=== PATIENT | female | born 2000 | race Caucasian/White ===

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

== ENCOUNTER 2021-04-13 11:49 | Emergency (ER) | payer OTHER ==
[~2021-04-13] VITALS: Ht 165.1 cm; Wt 80.1 kg
--- OUTSIDE RECORDS SUMMARY | 2021-04-13 11:56 | CCD ---
Author Author [facility] Organization [facility] Address [address] [place] [address] Phone Care Team Providers Care Imaging Specialist Name Role Phone Lucretia Mc MD Unavailable [phone] Reason for Referral No Reason for Referral Recorded Problems Includes: Active, inactive, and resolved Problems All Visits Onset Date - Time Resolved Date - Time Provider Co ndition Status Gerd 11/14/2020 - 12:00AM Purvi arevalo INSOLE DOUBLER Active Note: Unchanged Plan of Treatment Pending Tests Order Diagnosis Results Due Ordering Provi bhargav Therapy - Physical Therapy Left Knee Pain in left knee 09/21/17 Elza BuenoP Findings Encounter Date DISCONTINUE SIMETHICONE 80MG START FAMOTIDINE 20MG PO QD FFUP 4W GERD STANDARD OV with Purvi Portillo NP 01/16/2021 SIMETHICONE 80MG PO QID PRN PC AND AT HS FFUP 4W GE RD EXTENDED VISIT with Purvi Portillo NP 12/16/2020 GERD-AGGRAVATING LIST OF FOODS GIVEN DIET MODIFICAT ION THERAPY FFUP 4W GERD NEW PATIENT EVALUATION with Purvi Portillo NP 11/14/2020 Ordered follow-up visit RTC 4-6 WEEKS NEW PATIENT [place] LUATION with Elza Ricci 09/21/2017 Assessments Includes: Assessments for all patient encounters Findings Encounter Date GERD STANDARD OV with Purvi Portillo N P 01/16/2021 GERD EXTENDED VISIT with Purvi arevalo NP 12/16/2020 GERD NEW PATIENT EVALUATION with Purvi Portillo NP 11/14/2020 Arthralgia of the left knee/patella/tibia/fibula NEW P ATIENT EVALUATION with Elza Ricci 09/21/2017 Instructions Instructions not supported for this document typeNo Instructions Recorded Medical Equipment - Implanted Devices Includes: Current and historical DevicesNo Medical Equipment Recorded Medications Includes: Current and historical Medications Current Medications (continue as prescribed) Famotidine 20 MG Oral Tablet 01/16/2021 - 02/15/2021 Provide r: Purvi Nasim Portillo INSOLE DOUBLER Diagnosis: Gastro-esophageal re flux disease without esophagitis (GERD) TAKE 1 TAB BY MOUTH ONCE DAILY Past Medications on file Simethicone 80 MG Oral Tablet Chewable 12/16/2020 - 01/17/20 21 Provider: Purvi Portillo INSOLE DOUBLER Diagnosis: Gastro-esophageal re flux disease without esophagitis (GERD) TAKE 1 TAB BY MOUTH 4x/DAY NEEDED AFTER MEALS AND AT BEDT BLOSSOM Medications Administered Includes: Administered Medications in patient's chartNo Administered Medications Recorded Vital Signs Includes: Vital Signs from 01/17/2020 through 01/16/2021 Vital Name 01/16/2021 08:34A 12/16/2020 08:02A 11/14/2020 1 0:16A Blood Pressure Sitting L 102/60 118/76 BP Cuff Size Regular Regular Regular Pulse Rate-Sitting (bpm) 92 72 72 Respiration Rate (breaths/min) 20 20 2 4 Temp-Tympanic (F) 97.8 97.4 98.6 Height (in) 65 65 65 Weight (lb) 165 166 160 Body Mass Index (kg/m2) 27.5 27.6 26.6 BMI Percentile (percentile) 89 89 86 Body Surface Area (m2) 1.82 1.83 1.80 Oxygen Saturation (%) 98 98 98 Blood Pressure Sitting R 122/68 Flow Rate (l/min) (None (Room A ir)) FiO2 (%) 21 Results Includes: Results from 01/17/2020 through 01/16/2021No Results Recorded For Specified Dates History of Present Illness History of Present Illness not supported for this document typeNo History of Present Illness Recorded Social History Description Last Updated Social history unchanged 01/16/2021 Smoking Status Unknown Procedures and Surgical History Includes: Procedures from 01/17/2020 through 01/16/2021No Procedures For Specified Dates. No Surgical History Recorded Medical History Includes: Medical History in patient's chartNo Medical History Recorded Family History Includes: Family History in patient's chartNo Family History Recorded Review of Systems Review of Systems not supported for this document typeNo Review of Systems Recorded Mental Status Mental Status not supported for this document typeNo Mental Status Recorded Functional Status Functional Status not supported for this document typeNo Functional Status Recorded Physical Exam Physical Exam not supported for this document typeNo Physical Exam Recorded Immunizations Includes: Immunizations in patient's chartNo Immunizations Recorded Allergies Includes: Active, inactive, and resolved AllergiesNo Known Allergies Encounters Includes: Encounters from 01/17/2020 through 01/16/2021 Encounter Provider Location Date Check-In Time Check-Out Time D iagnosis STANDARD OV Purvi Portillo NP [facility] 01/16/2021 8:31AM 12/16/2020 11:59PM Gerd EXTENDED VISIT Purvi Portillo NP [facility] 12/16/2020 7:54AM 8:23AM Gerd NEW PATIENT EVALUATION Purvi Portillo NP [facility], 11/14/2020 10:14AM 10:58AM Gerd Insurance Includes: Active Insurance Policies Plan Name Member ID Group # Subscriber Relationship Effective Da scott 1 - (AID) [facility] [id number] Rex guerra Self Advance Directives Includes: Current Advance DirectivesNo Advance Directives Recorded Health Concerns Includes: Active Health ConcernsNo Active Health Concerns Recorded Goals Includes: Active GoalsNo Active Goals Recorded Interventions Includes: Interventions for active GoalsNo Interventions Recorded Evaluations & Outcomes Includes: Evaluations & Outcomes for active GoalsNo Outcomes Recorded
--- OUTSIDE RECORDS SUMMARY | 2021-04-13 11:56 | CCD ---
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 Note: Unchanged Plan of Treatment Pending Tests Order Diagnosis Results Due Ordering Provi bhargav Therapy - Physical Therapy Left Knee Pain in left knee 09/21/17 Elza BuenoP Future Appointments Date Time Location Provider STANDARD OV 03/18/2021 8:30AM [facility] Purvi Portillo MORTGAGE PROCESSING CLERK Findings Encounter Date INCREASE FAMOTIDINE TO 40MG PO QD FFUP 4W GERD SUREKHA DARD OV with Purvi Portillo NP 02/18/2021 DISCONTINUE SIMETHICONE 80MG START FAMOTIDINE 20MG PO QD FFUP 4W GERD STANDARD OV with Purvi Portillo MORTGAGE PROCESSING CLERK 01/16/2021 SIMETHICONE 80MG PO QID PRN PC [...] Encounter Date GERD STANDARD OV with Purvi Cochran P 02/18/2021 GERD STANDARD OV with Purvi Rouse Bandar N P 01/16/2021 GERD EXTENDED VISIT with Purvi Nasim arevalo MORTGAGE PROCESSING CLERK 12/16/2020 GERD NEW PATIENT EVALUATION with Purvi Olvera amy Portillo NP 11/14/2020 Arthralgia of the left knee/patella/tibia/fibula NEW P ATIENT EVALUATION with Ezla Ricci 09/21/2017 Instructions Instructions not supported for this document typeNo Instructions Recorded Medical Equipment - Implanted Devices Includes: Current and historical DevicesNo Medical Equipment Recorded Medications Includes: Current and historical Medications Current Medications (continue as prescribed) Famotidine 20 MG Oral Tablet 02/18/2021 - 03/20/2021 Provide r: Purvi Nasim Portillo NP Diagnosis: Gastro-esophageal re flux disease without esophagitis (GERD) TAKE 2 TABS (40MG) BY MOUTH ONCE DAILY Past Medications on file Famotidine 20 MG Oral Tablet 01/16/2021 - 02/18/2021 Provide r: [place] Nasim Portillo NP Diagnosis: Gastro-esophageal re flux disease without esophagitis (GERD) TAKE 1 TAB BY MOUTH ONCE DAILY Simethicone 80 MG Oral Tablet Chewable 12/16/2020 - 01/17/20 Provider: Purvi Portillo NP Diagnosis: Gastro-esophageal re flux disease without esophagitis (GERD) TAKE 1 TAB BY MOUTH 4x/DAY NEEDED AFTER MEALS AND AT BEDT BLOSSOM Medications Administered Includes: Administered Medications in patient's chartNo Administered Medications Recorded Vital Signs Includes: Vital Signs from 02/19/2020 through 02/18/2021 Vital Name 02/18/2021 07:58A 01/16/2021 08:34A 12/16/2020 08:02A 11/14/2020 10:16A Blood Pressure Sitting L 110/62 102/60 118/76 BP Cuff Size Regular Regular Regular Regular Pulse Rate-Sitting (bpm) 82 92 72 72 Respiration Rate (breaths/min) 24 20 20 24 Temp-Tympanic (F) 98 97.8 97.4 98.6 Height (in) 65 65 65 65 Weight (lb) 170 165 166 160 Body Mass Index (kg/m2) 28.3 27.5 27.6 26.6 BMI Percentile (percentile) 90 89 89 86 Body Surface Area (m2) 1.85 1.82 1.83 1.80 Oxygen Saturation (%) 98 98 98 98 Flow Rate (l/min) (None (Room Air)) (No ne (Room Air)) FiO2 (%) 21 21 Blood Pressure Sitting R 122 /68 Results Includes: Results from 02/19/2020 through 02/18/2021No Results Recorded For Specified Dates History of Present Illness History of Present Illness not supported for this document typeNo History of Present Illness Recorded Social History Description Last Updated Social history unchanged 02/18/2021 Smoking Status Unknown Procedures and Surgical History Includes: Procedures from 02/19/2020 through 02/18/2021No Procedures For Specified Dates. No Surgical History [...] AllergiesNo Known Allergies Encounters Includes: Encounters from 02/19/2020 through 02/18/2021 Encounter Provider Location Date Check-In Time Check-Out Time [facility]agnosis [facility] 7:57[facility] 01/16/2021 11:59PM Gerd STANDARD OV [place] Nasim Portillo [facility] 01/16/2021 8:31AM 9:01AM Gerd EXTENDED VISIT Purvifariha Portillo [facility] 12/16/2020 7:54AM 8:23AM Gerd NEW PATIENT EVALUATION [place] Nasim Portillo [facility] 11/14/2020 10:14AM 10:58AM Gerd Insurance Includes: Active Insurance Policies Plan Name Member ID Group # Subscriber Relationship Effective Da scott 1 - (AID) [facility] [id number] Rex Nichols n Self Advance Directives Includes: Current Advance DirectivesNo Advance Directives Recorded Health Concerns Includes: Active Health ConcernsNo Active Health Concerns Recorded Goals Includes: Active GoalsNo Active Goals Recorded Interventions Includes: Interventions for active GoalsNo Interventions Recorded Evaluations & Outcomes Includes: Evaluations & Outcomes for active GoalsNo Outcomes Recorded
--- OUTSIDE RECORDS SUMMARY | 2021-04-13 11:56 | CCD ---
Author Author [facility] Organization [facility] Address Unknown Phone Unavailable Care Team Providers Care District Gauger Name Role Phone Hospital Lab, [facility] Unavailable Unavailable TURRIN, JCARLOS Unavailable Unavailable TURRIN, JCARLOS Unavailable Unavailable TURRIN, JCARLOS Unavailable Unavailable TURRIN, JCARLOS Unavailable Unavailable Dilshad Arce Unavailable [phone] Dilshad Arce Unavailable [phone] Dilshad Arce Unavailable [phone] Dilshad Arce Unavailable [phone] Dilshad Arce Unavailable [phone] Dilshad Arce Unavailable [phone] Mami Winkler MD Unavailable Unavailable Mami Winkler MD Unavailable Unavailable Mami Winkler MD Unavailable Unavailable Mami Winkler MD Unavailable Unavailable Mami Winkler MD Unavailable Unavailable Mami Winkler MD Unavailable Unavailable Mami Winkler MD Unavailable Unavailable Mami Winkler MD Unavailable Unavailable Mami Winkler MD Unavailable Unavailable Mami Winkler MD Unavailable Unavailable Mami Winkler MD Unavailable Unavailable Mami Winkler MD Unavailable Unavailable Mami Winkler MD Unavailable Unavailable Mami Winkler MD Unavailable Unavailable Mami Winkler MD Unavailable Unavailable Mami Winkler MD Unavailable Unavailable Mami Winkler MD Unavailable Unavailable Mami Winkler MD Unavailable Unavailable Mami Winkler MD Unavailable Unavailable Mami Winkler MD Unavailable Unavailable Mami Winkler MD Unavailable Unavailable Mami Winkler MD Unavailable Unavailable Mami Winkler MD Unavailable Unavailable Mami Winkler MD Unavailable Unavailable Mami Winkler MD Unavailable Unavailable Bandar, Mariae Purvi SHOT HOLE SHOOTER Unavailable Unavailable [place], Mariae [place] SHOT HOLE SHOOTER Unavailable Unavailable Bandar, Mariae Purvi SHOT HOLE SHOOTER Unavailable Unavailable Bandar, Mariae [place] SHOT HOLE SHOOTER Unavailable Unavailable Bandar, Mariae Purvi SHOT HOLE SHOOTER Unavailable Unavailable [place], Mariae [place] SHOT HOLE SHOOTER Unavailable Unavailable [place], Mariae [place] SHOT HOLE SHOOTER Unavailable Unavailable [place], Mariae [place] SHOT HOLE SHOOTER Unavailable Unavailable Bandar, Mariae Purvi SHOT HOLE SHOOTER Unavailable Unavailable Bandar, Mariae [place] SHOT HOLE SHOOTER Unavailable Unavailable Bandar, Mariae Purvi SHOT HOLE SHOOTER Unavailable Unavailable Bandar, Mariae [place] SHOT HOLE SHOOTER Unavailable Unavailable Bandar, Mariae [place] SHOT HOLE SHOOTER Unavailable Unavailable [place], Mariae Purvi SHOT HOLE SHOOTER Unavailable Unavailable Bandar, Mariae [place] SHOT HOLE SHOOTER Unavailable Unavailable [place], Mariae [place] SHOT HOLE SHOOTER Unavailable Unavailable [place], Mariae [place] SHOT HOLE SHOOTER Unavailable Unavailable DANITZA SETHI MD Unavailable Unavailable [...] Unavailable Unavailable DANITZA SETHI MD Unavailable Unavailable GILDARDO SETHIALIFrances LUCERO Unavailable Unavailable DANITZA SETHI MD Unavailable Unavailable DANITZA SETHI MD Unavailable Unavailable DANITZA SETHI MD Unavailable Unavailable KARDOONI, BOSCH Unavailable Unavailable DANITZA SETHI MD Unavailable Unavailable NIURKA SETHIL Unavailable Unavailable DANITZA SETHI MD Unavailable Unavailable NIURKA SETHIL Unavailable Unavailable GILDARDO SETHIALIL Unavailable Unavailable JOSSIE, BOSCH Unavailable Unavailable GILDARDO SETHIALIL Unavailable Unavailable GIBRANDOGILDARDO ODONNELLALIL MD Unavailable Unavailable JOSSIE, BOSCH Unavailable Unavailable GIBRANDOBELLE, BOSCH MD Unavailable Unavailable Reina, M Christopher PA-C Unavailable Unavailable Reina, M Christopher PA-C Unavailable Unavailable Reina, M Christopher PA-C Unavailable Unavailable Reina, M Christopher PA-C Unavailable Unavailable Reina, M Christopher PA-C Unavailable Unavailable Reina, M Christopher PA-C Unavailable Unavailable Reina, M Christopher PA-C Unavailable Unavailable Reina, M Christopher PA-C Unavailable Unavailable Reina, M Christopher PA-C Unavailable Unavailable Reina, M Christopher PA-C Unavailable Unavailable Reina, M Christopher PA-C Unavailable Unavailable Reina, M Christopher PA-C Unavailable Unavailable Reina, M Christopher PA-C Unavailable Unavailable Reina, M Christopher PA-C Unavailable Unavailable Reina, M Christopher PA-C Unavailable Unavailable Reina, M Christopher PA-C Unavailable Unavailable Reina, M Christopher PA-C Unavailable Unavailable Reina, M Christopher PA-C Unavailable Unavailable Reina, M Christopher PA-C Unavailable Unavailable Reina, M Christopher PA-C Unavailable Unavailable Reina, M Christopher PA-C Unavailable Unavailable Reina, M Christopher PA-C Unavailable Unavailable Reina, M Christopher PA-C Unavailable Unavailable Reina, M Christopher PA-C Unavailable Unavailable Reina, M Christopher PA-C Unavailable Unavailable Reina, M Christopher PA-C Unavailable Unavailable Re-disclosure Warning The records that [...] is protected by Article 27-F of the [facility] Public Health law. If you continue you may have access to information: Regarding HIV / AIDS; Provided by facilities licensed or operated by the [facility] Office of Mental Health; or Provided by the [facility] Office for People With Developmental Disabilities. If such information is present, then the following [facility] mandated warning applies: This information has [...] law may result in a fine or nursing home sentence or both. A general authorization for the release of medical or other information is NOT sufficient authorization for further disc losure. Allergies and Adverse Reactions Type Description Substance Reaction Status Data Source(s ) Allergy to substance No Known Allergies No known allergies (situation ) [facility]) Allergy to substance No Known Allergies No known allergies (situation ) [facility]) Allergy to substance No Known Allergies No known allergies (situation ) [facility]) Allergy to substance No Known Allergies No known allergies (situation ) [facility]) Allergy to substance No Known Allergies No known allergies (situation ) [facility]) No Known Allergies No Known Allergies [facility] Family History Family Member Name Family Member Gender Family Member Status Date o f Status Description Data Source(s) Unknown Unknown Problem MEDENT ([facility], [facility]) Unknown Unknown Problem MEDENT ([facility]) Encounters Encounter Providers Location Date Indications Data Source(s ) <td ID="encounterTypeDescriptionID0">RAUL LEONIDESSARAHI OV</td><td>Purvi Portillo SHOT HOLE SHOOTER</td><td>[facility]</td><td>03/18/2021</td><td>8:24AM</td><td>9:08AM</td><td><content ID="encounterDiagnosisID0-0">Gerd</content>, <content ID="encounterDiagnosisID0- 1">Working Diagnosis of Gastric Ulcer</content></td>Outpatient Attender: Purvi Portillo NP [facility] 03/18/2021 08:24:00 AM EDT - 03/18/2021 09:08:00 AM EDT Working Diagnosis of Gastric UlcerGerd ALEXYS ([facility]) Working Diagnosis of Gastric Ulcer Gerd Outpatient Attender: Prachi Winkler MD 1 12:39:14 PM EDT - 03/05/2021 02:09:39 PM EDT Heather ([facility]) <td ID="encounterTypeDescriptionID1">STA NDARD OV</td><td>Purvi Portillo NP</td><td>[facility]</td><td>02/18/2021</td><td>7:57AM</td><td>8:25AM</td><td><content ID="encounterDiagnosisID1-0">Gerd</content></td>Outpatient Attender: Purvi Portillo NP [facility], 02/18/2021 07:57:00 AM EDT - 02/18/2021 08:25:00 AM EDT GerdGerd ALEXYS ([facility]) Gerd Gerd Outpatient<td ID="encounterTypeDescripti onID2">STANDARD OV</td><td>Purvi Portillo NP</td><td>[facility]</td><td>01/16/2021</td><td>8:31AM</td><td>9:01AM</td><td><content ID="encounterDiagnosisID2-0">Gerd</content></td> Attender: Purvi Portillo NP [facility], 01/16/2021 08:31:00 AM EDT - 01/16/2021 09:01:00 AM EDT Darryl REARDON ([facility]) Gerd Gerd Gerd Outpatient<td ID="encounterTypeDescripti onID3">EXTENDED VISIT</td><td>Purvi Portillo NP</td><td>[facility]</td><td>12/16/2020</td><td>7:54AM</td><td>8:23AM</td><td><content ID="encounterDiagnosisID3-0">Gerd</content></td> Attender: Purvi Portillo NP [facility], 12/16/2020 07:54:00 AM EDT - 12/16/2020 08:23:00 AM EDT Khris REARDON ([facility]) Gerd Gerd Gerd Gerd Outpatient<td ID="encounterTypeDescripti onID4">NEW PATIENT EVALUATION</td><td>Purvi Portillo NP</td><td>[facility]</td><td>11/14/2020</td><td>10:14AM</td><td>10:58AM</td><td><content ID="encounterDiagnosisID4-0">Gerd</content></td> Attender: Purvi Portillo NP [facility], 11/14/2020 10:14:00 AM EDT - 11/14/2020 10:58:00 AM EDT Roberth REARDON ([facility]) Gerd Gerd Gerd Gerd Gerd Outpatient Attender: Peter Reina PA-C 11/01/2020 01:21:35 PM EDT - 11/01/2020 02:37:29 PM EDT [facility] ([facility]) Outpatient Attender: Dilshad Arce 07/30 04:56:14 PM EST - 07/30/2020 05:50:20 PM EST [facility] ([facility] ) Outpatient Attender: [facility] 07/16/2020 11:4 0:[address] [facility] Emergency Attender: JCARLOS Gunterant: DANITZA DUMONT MD 07/16/2020 11:27:00 PM EST - 07/17/2020 01:34:00 AM [facility] Patient discharged. Immunizations Vaccine Date Status Description Data Source(s) COVID-19 VACCINE Pfizer 02/13/2021 12:00:00 AM EDT completed [facility] Vaccine Series Complete: YESThis Data wa s Submitted to [facility] Via [employer]. COVID-19 VACCINE Pfizer 01/23/2021 12:00:00 AM EDT completed [facility] Vaccine Series Complete: NOThis Data was Submitted to [facility] Via [employer]. Medications Medication Brand Name Start Date Product Form Dose Route Admi nistrative Instructions Pharmacy Instructions Status Indications Reaction Description Data Source(s) Famotidine 20 MG Oral Tablet Famotidine 20 MG Oral Tablet 12:00:00 AM EDT active famotidine 20 MG Oral Tablet [facility] ([facility]) Omeprazole 20 MG Delayed Release Oral Ta blet Omeprazole 20 MG Oral Tablet Delayed Release Omeprazole 20 MG Oral Tablet Delayed Release 12:00:00 AM EDT active omeprazole 20 MG Delayed Release Oral Tablet [facility] ([facility]) Famotidine 20 MG Oral Tablet Famotidine 20 MG Oral Tablet 12:00:00 AM EDT aborted famotidine 20 MG Oral Tablet [facility] ([facility]) Famotidine 20 MG Oral Tablet Famotidine 20 MG Oral Tablet 12:00:00 AM EDT aborted famotidine 20 MG Oral Tablet [facility] ([facility]) Simethicone 80 MG Chewable Tablet Simethicone 80 MG Or al Tablet Chewable Simethicone 80 MG Oral Tablet Chewable 12/16/2020 12:00:00 AM EDT aborted simethicone 80 MG Chewable Table t [facility] ([facility]) Insurance Providers Payer name Policy type / Coverage type Policy ID Covered constitution party ID Covered constitution party's relationship to menjivar Policy Menjivar Plan Information BS [place] [employer] Commercial [id number] Family Dependent Hmo Blue Option Health Maintenance Organization (HMO) [id number] Family Dependent [facility] Community Plan Health Maintenance Organization (HMO) [id number] Family Dependent [place] Commercial Insurance Co. [id number] Self [id number] [employer]. [id number] Self [id number] Sky Commercial [employer] Co. [id number] Self [id number] SKY CARE OF [place] - [id number] SKY [id number] SP [id number] UNHC COMMUNITY PLAN MCDO [id number] SP [id number] MEDICAID SBHC CO [id number] [id number] Self [id number] Medicaid SBHC Commercial [id number] Self [id number] [facility](MCAID) O [id number] S [id number] UNHC COMMUNITY PLAN MCDO [id number] SP [id number] SELF PAY ONLY [id number] [facility]/Community [facility] Health Maintenance Organization (HMO) [id number] Self [id number] UNHC AMERICHOICE HMO [id number] 18 [id number] MEDICAID [id number] SP [id number] UNHC AMERICHOICE XIX -HMO [id number] 18 [id number] MEDICAID [facility] [id number] 18 [id number] [employer] BCBS P [id number] S [id number] [facility](MCAID) O [id number] S [id number] Medicaid-Pcap Medicaid [id number] Family Dependent SELF PAY UNAVAILABLE SP UNAVAILA BLE HMO BLUE [id number] SP [id number] MEDICAID [id number] SP [id number] HMO BLUE [id number] SP [id number] [place] Care [place] Individual Policy 0 [id number] Self 0 HMO BLUE [id number] SP [id number] [place] Individual Policy 0 [id number] Self 0 [place] Policy 0 [id number] Self 0 [place] Individual Policy 0 [id number] Self 0 [place] Individual Policy 0 [id number] Self 0 SKY [id number] Problems, Conditions, and Diagnoses Code Display Name Description Problem Type Effective Dates Data Source(s) K047 Periapical abscess without sinus Periapical absc ess without sinus Diagnosis 07/16/2020 11:27:00 PM [facility] K0889 Other specified disorders of teeth and s upporting structures Other specified disorders of teeth and supporting structures Diagnosis 07/16/2020 11:27:00 PM [facility] 530.81 Gerd Gerd Problem 11/14/2020 12:00:00 AM ED [facility] ([facility]) 530.81 Gerd Gerd Problem 11/14/2020 12:00:00 AM ED T [facility] ([facility]) 530.81 Gerd Gerd Problem 11/14/2020 12:00:00 AM ED T [facility] ([facility]) 530.81 Gerd Gerd Problem 11/14/2020 12:00:00 AM ED T [facility] ([facility]) 530.81 Gerd Gerd Problem 11/14/2020 12:00:00 AM ED T [facility] ([facility]) Surgeries/Procedures No Information Results ID Date Data Source [id number] 03/05/2021 01:30:00 PM EDT [facility] Name Value Range Interpretation Code Description Data Cary rce(s) Supporting Document(s) SARS-CoV-2 RNA Resp Ql VENU+probe NOT DETECTED [facility] This lab was ordered by MARISABEL tobin and reported by MARISABEL Costa. ID Date Data Source [id number] 02/19/2021 05:03:00 PM EDT [facility] Name Value Range Interpretation Code Description Data Cary rce(s) Supporting Document(s) SARS coronavirus 2 RdRp gene Covid_negative [facility] This lab was ordered by [facility] and reported by [employer]. ID Date Data Source [id number] 02/12/2021 05:45:00 PM EDT [facility] Name Value Range Interpretation Code Description Data Cary rce(s) Supporting Document(s) SARS coronavirus 2 RdRp gene Covid_negative [facility] This lab was ordered by [facility] and reported by [employer]. ID Date Data Source [id number] 02/05/2021 05:13:00 PM EDT [facility] Name Value Range Interpretation Code Description Data Cary rce(s) Supporting Document(s) SARS coronavirus 2 RdRp gene Covid_negative [facility] This lab was ordered by VEE cordoba nd reported by [employer]. ID Date Data Source [id number] 07/16/2020 11:27:00 PM EST [facility] 1 OrderSheet [facility] Emergency Department [address] [place] [address] Phone #: ext- [phone] 07/16/2020 23:27 Patient: REX PRESCOTT Sex: F : 2000 Age: 19yWEIGHT:72.5 [...] R.N. M.D.;Blood Culture STAT 23:42 07/16/2020 23:53 Virginie,q10m X2 (Olimpia Jcarlos Layton R.N.23:42 07/16/2020) Vamis;Blood Culture STAT 23:42 07/16/2020 00:03 07/17/2020q10m X2 (Olimpia Jcarlos Layton Laura23:52 07/16/2020) Vamsi; R.N.DIAGNOSTIC STUDY ORDERSOrder Description Priority Entered Acknowledged Initi aledMEDICATION/IV/DRIP/FLUID ORDERSOrder Description Priority Entered Acknowledged InitialedNS IV 1000 mL 23:42 07/16/2020 00:00 07/17/2020olus: : Bolus 1000 Jcarlos Layton GregorymL (X1) Vamsi;Ibuprofen 800 mg 23:42 07/16/2020 00:00 1PO X1 dose: 800 Jcarlos Layton Gregorymg (NOW x1) Vamsi;Clindamycin IVPB 23:42 07/16/2020 00:04 07/17/2020 2 OrderSheet [facility] [address] [place] [address] Phone #: ext- [phone] 07/16/2020 23:27 Patient: REX PRESCOTT Sex: F : 2000 Age: 78x143 mg Jcarlos Layton Laura M.D.; R.N.NS IV 1000 mL 00:41 07/17/2020 00:45 Virginie,Bolus: : Bolus 1000 Jcarlos LaytonN.mL (X1) DouglasDZachary;GENERAL ORDERSOrder Description Priority Entered Acknowledged InitialedNPO 23:42 07/16/2020 23:53 MelKinjal meneses Riccardo Laura R.N. M.D.;Saline Lock 23:42 07/16/2020 23:53 Kinjal Rachel Riccardo Laura R.N. M.D.;[Electronically signed by Leroy Jiang (01:35 07/17/2020)][Electronically signed by Jcarlos Layton M.D. (03:07 07/17/2020)][Electronically locked by Leroy Jiang (01:35 07/17/2020)] Name Value Range Interpretation Code Description Data Cary rce(s) Supporting Document(s) ID Date Data Source [id number] 07/16/2020 11:27:00 PM EST [facility] 1 Medication Reconciliation Report [facility] Emergency [facility] [address] [place] [address] Phone #: ext- [phone] 07/16/2020 23:27 Patient: REX PRESCOTT Sex: F : 2000 Age: 19yWeight: [...] Dispense 28 capsule.Refills: 0. Substitution permitted.Pharmacy - [facility] [id number] ; [place] [address]. . -- Jcarlos Layton M.D. Name Value Range Interpretation Code Description Data Cary rce(s) Supporting Document(s) ID Date Data Source [id number] 07/16/2020 11:27:00 PM EST [facility] 1 Medication Administration Record [facility] [address] [place] [address] Phone #: ext- [phone] 07/16/2020 23:27 Patient: REX PRESCOTT Sex: F : 2000 Age: 19yWeight: 72.5 kgHeight/Length: 65 inBMI: 26.6ALLERGIES: No Known Drug Allergy Date/Time Medication Administered Medication OrderedStart NS [IV] NS IV 1000 mL Bolus: : Bolus [id number] 07/16/2020 Dose: IV Fluids mL (X1)Leroy Jiang, Bolus: 1000 mL wide open---- Dispensed: 1000 mL bagStop Site: #1 left :00 07/17/2020Sarah Rachel, R.NZacharyGiven IBUPROFEN [PO] Ibuprofen 800 mg PO X1 dose: 42375:00 07/17/2020 Dose: 800 mg Tablets PO mg (NOW x1)Leroy JiangStart CLINDAMYCIN [IVPB] Clindamycin IVPB 900 mg00:04 07/17/2020 Dose: 900 mg IVPBMelar Sarah london, R.NZachary Rate: 100 mL/hr over 30 minute(s)---- Dispensed: 50 mL bagStop Site: #1 left [id number]:40 07/17/2020Sarah Rachel, R.NZacharyStart SODIUM CHLORIDE [IV] NS IV 1000 mL Bolus: : Bolus 737762:45 07/17/2020 Dose: IV Fluids mL (X1)Sarah Rachel R.N. Bolus: 1000 mL wide open---- Dispensed: 1000 mL bagStop Site: #1 left yoqhmwq58:26 07/17/2020Sarah Rachel R.N. Name Value Range Interpretation Code Description Data Cary rce(s) Supporting Document(s) ID Date Data Source [id number] 07/16/2020 11:27:00 PM EST [facility] 1 General Instructions [facility] [address] [place] [address] Phone #: ext- [phone] 07/16/2020 23:27 Patient: REX PRESCOTT Sex: F : 2000 Age: 19yPeriapical [...] Dispense 28 capsule.Refills: 0. Substitution permitted.Pharmacy - [facility] [phone] ; [place] [address]. .Follow-up:Return to the emergency department as needed. [...] or biting on hard 2 General Instructions [facility] [address] [place] [address] Phone #: ext- [phone] 07/16/2020 23:27 Patient: REX PRESCOTT Sex: F : 2000 Age: 19 [...] reduce pain. Oil of cloves is sold bmyb-rst-mifzugn in pharmacies. Some pharmacies carry an vecu-qtm-pirhpry "toothache kit." This contains oil of cloves [...] or an ice pack 3 General Instructions [facility] [address] [place] [address] Phone #: ext- [phone] 07/16/2020 23:27 Patient: REX PRESCOTT Sex: F : 2000 Age: 19y [...] sooner.Follow-up careFollow up as advised with an flanging machine operator, or oral surgeon. Even though your pain may improve withthe treatment given today, only a dentist, flanging machine operator, or oral surgeon can provide full treatment forthis problem. If a culture was done, you will be told if the treatment needs to be changed. You can call in as directed for the results. If X-rays were taken, they will be reviewed by a specialist. You will be given the results, especially if they affect treatment.Call [phone] if any of these occur: Trouble breathing [...] by your healthcare provider 4 General Instructions [facility] [address] [place] [address] Phone #: ext- [phone] 07/16/2020 23:27 Patient: REX PRESCOTT Sex: F : 2000 Age: 19y Unusual drowsiness, a headache or stiff neck, or weakness Pus drains from the gum or tooth You can't open your mouth wide [phone] The [employer]. [address] [place] [address]. All rights reserved. This information is not [...] to. For example, take 5 General Instructions [facility] [address] [place] [address] Phone #: ext- [phone] 07/16/2020 23:27 Patient: REX PRESCOTT Sex: F : 2000 Age: 19yibuprofen. [...] rejection medicines. If you 6 General Instructions [facility] [address] [place] [address] Phone #: ext- [phone] 07/16/2020 23:27 Patient: REX PRESCOTT Sex: F : 2000 Age: 19y are not sure about whether your medicines suppress your immune system, ask your healthcare provider.Call 911Someone should call 911 if you: Are having trouble breathing or shortness of breath Are unresponsiveImportant reminderCall your healthcare provider if you get a fever after visiting a place where infectious diseases arecommon. Many people orange picker machine operator a cold or other virus while traveling. [...] you travelled and where you stayed (hotel, lower elwha house, tent) What you ate and drank If you were bitten by insects or other bugs If you swam in freshwater If you had sex or got a tattoo or piercing while you were thereCheck the [facility] to get more information about specific infectious diseases in the areas you havetraveled. [employer]. [address] [place] [address], [place] [address]. All rights reserved. This information is not intended as asubstitute for professional medical care. Always follow your healthcare professional's instructions. You have been given the following additional information: Tooth Abscess Fever Control (Adult) 7 General Instructions [facility] [address] [place] [address] Phone #: ext- [phone] 07/16/2020 23:27 Patient: REX PRESCOTT Sex: F : 2000 Age: 19y(Electronically signed by Jcarlos Layton M.D. 07/17/2020 03:07) Name Value Range Interpretation Code Description Data Cary rce(s) Supporting Document(s) ID Date Data Source [id number] 07/16/2020 11:27:00 PM EST [facility] 1 Clinical Report - Nurses [facility] [address] [place] [address] Phone #: ext- [phone] 07/16/2020 23:27 Patient: REX PRESCOTT Sex: F : 2000 Age: 19yTRIAGEArrived [...] also took Benadryl about 2 hrs ago.).Treatment MANAGER INVENTORY MANAGEMENT:(penicillin and benadryl).SEPSIS SCREEN: SIRS SCREEN POSITIVE: temperature [...] harming or 2 Clinical Report - Nurses [facility] [address] [place] [address] Phone #: ext- [phone] 07/16/2020 23:27 Patient: REX PRESCOTT Sex: F : 2000 Age: 19y [...] flushed with 10 mL saline (placed by Sarah RN). --23:59 07/16/20 Leroy Jiang 3 Clinical Report - Nurses [facility] [address] [place] [address] Phone #: ext- [phone] 07/16/2020 23:27 Patient: REX PRESCOTT Sex: F : 2000 Age: 19y23:59 [...] with patient. Verbalizes understanding. --00:04 07/17/20 Sarah Rachel, RDenisePatient ID band checked for patient name and [...] calm and resting quietly. --00:22 07/17/20 Sarah Racehl R.N.The patient is calm and resting quietly. [...] air. Temp: 99.2 F(oral). Pain level now: 10/06. --01:02 07/17/20 Sarah Rachel R.N.The patient is calm and resting quietly. Overall patient status- she states feels better. --01:07/17/20Sarah Rachel R.N. 4 Clinical Report - Nurses [facility] [address] [place] [address] Phone #: ext- [phone] 07/16/2020 23:27 Patient: REX PRESCOTT Sex: F : 2000 Age: 19y [...] 99.2 F (oral). Pain level now: 09/06. --01:07/17/20 Sarah Rachel R.N. 01:07/17/2020 Site #1 removed upon discharge. Bandage applied. --01:07/17/20 Sarah Rachel R.N. ( MD Layton aware of d/c VS and okay with d/c pt.). --:07/17/20 Sarah Rachel R.N. Condition at departure: stable. No learning barriers present. Discharge instructions provided and reviewed with the patient. Reviewed warnings (signs and symptoms of worsening condition). Reviewed medication(s) side effects, precautions, dosing and course information. Prescription(s) sent electronically to pharmacy (clindamycin Tylenol, ibuprophen). Reviewed referral to a dentist. Patient verbalized understanding. Written instructions provided in Venezuelan. No treatment instructions. The patient was discharged by the physician. She was discharged home and accompanied by parent. She left ambulatory and via private vehicle. Parent driving. --01:35 07/17/20 Leroy Jiang.Locked/Released at 07/17/2020 01:35 by Leroy Jiang Name Value Range Interpretation Code Description Data Cary rce(s) Supporting Document(s) ID Date Data Source [id number] 07/16/2020 11:27:00 PM [facility] 1 Clinical Report - Physicians/Mid Levels [facility] [address] [place] [address] Phone #: ext- [phone] 07/16/2020 23:27 Patient: REX PRESCOTT Sex: F : 2000 Age: 19y [...] EXAM 2 Clinical Report - Physicians/Mid Levels [facility] [address] [place] [address] Phone #: ext- [phone] 07/16/2020 23:27 Patient: REX PRESCOTT Sex: F : 2000 Age: 19y [...] PANEL 3 Clinical Report - Physicians/Mid Levels [facility] [address] [place] [address] Phone #: bdo- [phone] 07/16/2020 23:27 Patient: REX PRESCOTT Sex: F : 2000 Age: 19y SODIUM [...] NEGATIVE (NORMAL: NEGAT { KIT LOT # [id number] ){ KIT EXP DATE [id number] ){ PROCEDURAL CONTROL VALID ) Lactic Acid: [...] store. 4 Clinical Report - Physicians/Mid Levels [facility] [address] [place] [address] Phone #: [facility]- [phone] 07/16/2020 23:27 [id number] Sex: F : 2000 Age: 19y Patient [...] capsule. Refills: 0. Substitution permitted. Pharmacy - [facility] [phone] ; [place] [address]. . Follow- up: Return to the emergency department as needed. Follow up with a dentist today as scheduled even if well. Reason for referral: evaluation and treatment. Summary of care provided to patient via paper. 5 Clinical Report - Physicians/Mid Levels [facility] [place] [address] Phone #: ext- [phone] 07/16/2020 23:27 Patient: REX PRESCOTT Sex: F : 2000 Age: 19y(Electronically signed by Jcarlos Layton M.D. 07/17/2020 03:07) Name Value Range Interpretation Code Description Data Cary rce(s) Supporting Document(s) ID Date Data Source [id number] 07/22/2020 12:57:00 PM [facility] Name Value Range Interpretation Code Description Data Cary rce(s) Supporting Document(s) CULTURE BLOOD [facility] Ho spital _CULTURE BLOOD_{ PRELIM TEST PERFORMED AT [address] [address] CLIA# [id number] SEE SCANNED REPORT ID Date Data Source [id number] 07/22/2020 07:41:00 AM EST [facility] [id number] Name Value Range Interpretation Code Description Data Cary rce(s) Supporting Document(s) Bacteria identified in Blood by Culture [facility] NO GROWTH AFTER 5 DAYS ID Date Data Source [id number] 07/22/2020 12:57:00 PM [facility] Name Value Range Interpretation Code Description Data Cary rce(s) Supporting Document(s) CULTURE BLOOD [facility] _CULTURE BLOOD_{ PRELIM TEST PERFORMED AT [address] [address] CLIA# [id number] SEE SCANNED REPORT ID Date Data Source [id number] 07/17/2020 12:31:00 AM [facility] Name Value Range Interpretation Code Description Data Cary rce(s) Supporting Document(s) COMPREHENSIVE METABOLIC PANEL [facility] COMPREHENSIVE METABOLIC PANEL Sodium [Moles/volume] in Serum or Plasma 136 mEq/L 134 - 153 [facility] Potassium [Moles/volume] in Serum or Plasma 3.9 mEq/L 3.6 - 5.0 [facility] Chloride [Moles/volume] in Serum or Plasma 100 mEq/L 98 - 107 [facility] Carbon dioxide, total [Moles/volume] in Serum or Plasma 22 MEQ/L 22 - 30 [facility] Glucose [Mass/volume] in Serum or Plasma 120 MG/DL 70 - 99 H [facility] BUN 8 MG/DL 7 - 21 [facility] al Creatinine [Mass/volume] in Serum or Plasma 0.6 MG/DL 0.7 - 1.5 L [facility] BUN/CREAT 13 8 - 27 [facility] al Protein [Mass/volume] in Serum or Plasma 7.4 G/DL 6.3 - 8.2 [facility] Albumin [Mass/volume] in Serum or Plasma 4.5 G/DL 3.9 - 5.0 [facility] Globulin [Mass/volume] in Serum by calculation 2.9 GM/DL 2.4 - 3.2 [facility] A/G RATIO 1.6 0.8 - 2.0 [facility] Calcium [Mass/volume] in Serum or Plasma 9.6 MG/DL 8.4 - 10.2 [facility] Bilirubin.total [Mass/volume] in Serum or Plasma 1.9 MG/DL 0.2 - 1.3 H [facility] Alkaline phosphatase [Enzymatic activity/volume] in Serum or Plasma 51 U/L 38 - 126 [facility] Aspartate aminotransferase [Enzymatic activity/volume] in Serum or Plasma 15 U/L 5 - 40 [facility] Alanine aminotransferase [Enzymatic activity/volume] in Seru m or Plasma 10 U/L 7 - 56 [facility] Anion gap 3 in Serum or Plasma 14.0 mmol/L 8.0 - 16.0 [facility] AGE 19 yrs [facility] NON-AA GFR >60 mL/min [facility] AFR AMER GFR >60 mL/min [facility] Male GFR In terprentation [...] >32 mL/min Normal ID Date Data Source [id number] 07/17/2020 12:20:00 AM EST [facility] Name Value Range Interpretation Code Description Data Cary rce(s) Supporting Document(s) HCG SERUM QUAL NEGATIVE NORMAL: NEGATIVE [facility] HCG SERUM QL REENTER NEGATIVE NORMAL: NEGATIVE [facility] { KIT LOT # [id number] ){ KIT EXP DATE 200785 ){ PROCEDURAL CONTROL VALID ) ID Date Data Source [id number] 07/17/2020 12:20:00 AM [facility] Name Value Range Interpretation Code Description Data Cary rce(s) Supporting Document(s) CBC W/AUTOMATED DIFF [facility] COMPLETE BLOOD COUNT Leukocytes [#/volume] in Blood by Automated count 8.8 10^3/uL 4.2 - 1 1.0 [facility] Erythrocytes [#/volume] in Blood by Automated count 4.34 10^6/uL 4. 20 - 5.40 [facility] Hemoglobin [Mass/volume] in Blood 13.1 g/dL 12.0 - 16.0 [facility] Hematocrit [Volume Fraction] of Blood by Automated count 37.8 % 3 7.0 - 47.0 [facility] Erythrocyte mean corpuscular volume [Entitic volume] by Auto mated count 87.1 fL 81.0 - 101 [facility] Erythrocyte mean corpuscular hemoglobin [Entitic mass] by Automated count 30.2 pg 27.0 - 34.0 [facility] Erythrocyte mean corpuscular hemoglobin concentration [Mass/volume] by Automated count 34.7 g/dL 31.0 - 36.0 [facility] Erythrocyte distribution width [Ratio] by Automated count 11.6 % 11.5 - 14.5 [facility] Platelets [#/volume] in Blood by Automated count 312 10^3/uL 150 - 45 0 [facility] Platelet mean volume [Entitic volume] in Blood by Automated count 9.0 fL 7.4 - 10.4 [facility] Neutrophils/100 leukocytes in Blood by Automated count 86.0 % 37. 0 - 80.0 H [facility] Lymphocytes/100 leukocytes in Blood by Manual count 5.7 % 25.0 - 40.0 L [facility] Monocytes/100 leukocytes in Blood by Automated count 6.3 % 3.0 - 8.0 [facility] Eosinophils/100 leukocytes in Blood by Automated count 1.4 % 0.0 - 7.0 [facility] Basophils/100 leukocytes in Blood by Automated count 0.3 % 0.0 - 2.5 [facility] %IG 0.3 % 0.0 - 0.0 H [facility] Hospit al %NRBC 0.0 % 0.0 - 0.0 [facility] al Neutrophils [#/volume] in Blood by Automated count 7.58 10^3/uL 2.00 - 6.90 H [facility] Lymphocytes [#/volume] in Blood by Automated count 0.50 10^3/uL 0.60 - 3.40 L [facility] Monocytes [#/volume] in Blood by Automated count 0.56 10^3/uL 0.00 - 0.90 [facility] Eosinophils [#/volume] in Blood by Automated count 0.12 10^3/uL 0.00 - 0.70 [facility] Basophils [#/volume] in Blood by Automated count 0.03 10^3/uL 0.00 - 0.20 [facility] #IG 0.03 10^3/uL 0.00 - 0.10 [facility] ospital #NRBC 0.00 10^3/uL 0.00 - 0.00 [facility] ospital MANUAL DIFF NOT INDICATED [facility] RBC MORPH NOT INDICATED [facility] spital ID Date Data Source [id number] 07/17/2020 12:20:00 AM EST [facility] Name Value Range Interpretation Code Description Data Cary rce(s) Supporting Document(s) Lactate [Moles/volume] in Serum or Plasma 1.2 MMOL/L 0.2 - 2.2 [facility] Procedure Social History No Information Vital Signs ID Date Data Source UNK Name Value Range Interpretation Code Description Data Source(s) Systolic blood pressure 120 mm[Hg] 120 mm[Hg] [facility] ([facility]) Diastolic blood pressure 80 mm[Hg] 80 mm[Hg] [facility] ([facility]) Heart rate 87 /min 87 /min [facility] ([facility]) Body temperature 96.7 [degF] 96.7 [degF] [facility] ([facility]) Body height 65 [in_i] 65 [in_i] [facility] ([facility]) Body weight 172 [lb_av] 172 [lb_av] [facility] ([facility]) Body mass index (BMI) [Ratio] 28.6 kg/m2 28.6 k g/m2 [facility] ([facility]) Body mass index (BMI) [Percentile] 91 {percentile} 91 {percentile} [facility] ([facility]) Body surface area Derived from formula 1.86 m2 1.86 m2 [facility] ([facility]) Oxygen saturation in Arterial blood by Pulse oximetry 93 % 93 % [facility] ([facility]) Inhaled oxygen flow rate 0 L/min 0 L/min [facility] ([facility]) Inhaled oxygen concentration 21 % 21 % [facility] ([facility]) Respiratory rate 18 /min 18 /min [facility] ([facility]) Systolic blood pressure 110 mm[Hg] 110 mm[Hg] [facility] ([facility]) Respiratory rate 24 /min 24 /min [facility] ([facility]) Diastolic blood pressure 62 mm[Hg] 62 mm[Hg] [facility] ([facility]) Heart rate 82 /min 82 /min [facility] ([facility]) Body temperature 98 [degF] 98 [degF] [facility] ([facility]) Body height 65 [in_i] 65 [in_i] [facility] ([facility]) Body mass index (BMI) [Ratio] 28.3 kg/m2 28.3 k g/m2 [facility] ([facility]) Body mass index (BMI) [Percentile] 90 {percentile} 90 {percentile} [facility] ([facility]) Body surface area Derived from formula 1.85 m2 1.85 m2 [facility] ([facility]) Oxygen saturation in Arterial blood by Pulse oximetry 98 % 98 % [facility] ([facility]) Inhaled oxygen flow rate 0 L/min 0 L/min [facility] ([facility]) Inhaled oxygen concentration 21 % 21 % [facility] ([facility]) Body weight 170 [lb_av] 170 [lb_av] [facility] ([facility]) Systolic blood pressure 102 mm[Hg] 102 mm[Hg] [facility] ([facility]) Diastolic blood pressure 60 mm[Hg] 60 mm[Hg] [facility] ([facility]) Heart rate 92 /min 92 /min [facility] ([facility]) Respiratory rate 20 /min 20 /min [facility] ([facility]) Body temperature 97.8 [degF] 97.8 [degF] [facility] ([facility]) Body height 65 [in_i] 65 [in_i] [facility] ([facility]) Body weight 165 [lb_av] 165 [lb_av] [facility] ([facility]) Body mass index (BMI) [Ratio] 27.5 kg/m2 27.5 k g/m2 [facility] ([facility]) Body mass index (BMI) [Percentile] 89 {percentile} 89 {percentile} [facility] ([facility]) Body surface area Derived from formula 1.82 m2 1.82 m2 [facility] ([facility]) Oxygen saturation in Arterial blood by Pulse oximetry 98 % 98 % [facility] ([facility]) Systolic blood pressure 118 mm[Hg] 118 mm[Hg] [facility] ([facility]) Diastolic blood pressure 76 mm[Hg] 76 mm[Hg] [facility] ([facility]) Heart rate 72 /min 72 /min [facility] ([facility]) Respiratory rate 20 /min 20 /min [facility] ([facility]) Body temperature 97.4 [degF] 97.4 [degF] [facility] ([facility]) Body height 65 [in_i] 65 [in_i] [facility] ([facility]) Body weight 166 [lb_av] 166 [lb_av] [facility] ([facility]) Body mass index (BMI) [Ratio] 27.6 kg/m2 27.6 k g/m2 [facility] ([facility]) Body mass index (BMI) [Percentile] 89 {percentile} 89 {percentile} [facility] ([facility]) Body surface area Derived from formula 1.83 m2 1.83 m2 [facility] ([facility]) Oxygen saturation in Arterial blood by Pulse oximetry 98 % 98 % [facility] ([facility]) Heart rate 72 /min 72 /min [facility] ([facility]) Respiratory rate 24 /min 24 /min [facility] ([facility]) Body temperature 98.6 [degF] 98.6 [degF] [facility] ([facility]) Body height 65 [in_i] 65 [in_i] [facility] ([facility]) Body weight 160 [lb_av] 160 [lb_av] [facility] ([facility]) Body mass index (BMI) [Ratio] 26.6 kg/m2 26.6 k g/m2 [facility] ([facility]) Body mass index (BMI) [Percentile] 86 {percentile} 86 {percentile} [facility] ([facility]) Body surface area Derived from formula 1.80 m2 1.80 m2 [facility] ([facility]) Oxygen saturation in Arterial blood by Pulse oximetry 98 % 98 % [facility] ([facility] Inhaled oxygen flow rate 0 L/min 0 L/min [facility] ([facility]) Inhaled oxygen concentration 21 % 21 % [facility] ([facility]) Systolic blood pressure 122 mm[Hg] 122 mm[Hg] [facility] ([facility]) Diastolic blood pressure 68 mm[Hg] 68 mm[Hg] [facility] ([facility]) Patient Treatment Plan of Care Planned Activity Planned Date Details Description Data Source (s) Omeprazole 20 MG Delayed Release Oral Tablet 03/18/2021 12:00:00 AM EDT [facility] ([facility]) Famotidine 20 MG Oral Tablet 03/18/2021 12:00:00 AM EDT [facility] ([facility]) Famotidine 20 MG Oral Tablet 02/18/2021 12:00:00 AM EDT [facility] ([facility]) Famotidine 20 MG Oral Tablet 01/16/2021 12:00:00 AM EDT [facility] ([facility]) Simethicone 80 MG Chewable Tablet 12/16/2020 12:00:00 AM [facility] ([facility])
--- OUTSIDE RECORDS SUMMARY | 2021-04-13 11:56 | CCD ---
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 Name Role Phone Lucretia Mc MD Unavailable [phone] Reason for Referral No Reason for Referral Recorded Problems Includes: Active, inactive, and resolved Problems All Visits Onset Date - Time Resolved Date - Time Provider Co ndition Status Gerd 11/14/2020 - 12:00AM Purvi arevalo [employer] SALES CONSULTANT Active Note: Unchanged Plan of Treatment Pending Tests Order Diagnosis Results Due Ordering Provi bhargav Therapy - Physical Therapy Left Knee Pain in left knee 09/21/17 Elza Robles TEACHER ASST Future Appointments Date Time Location Provider EXTENDED VISIT 04/17/2021 8:45AM Family [facility] Woo NP Findings Encounter Date REFERRAL TO GI FOR SECOND OPINION ON ? GASTRIC ULCER, GERD ?EGD?. PLS SEND NOTES FROM 11/14, AND 12/16 WELL. START OMEPRAZOLE 20MG PO QD FFUP 4W GERD/?GASTRIC ULCER STANDARD OV with Purvi Portillo NP 03/18/2021 INCREASE FAMOTIDINE TO 40MG PO QD FFUP [...] GERD NEW PATIENT EVALUATION with Purvi Portillo [employer] DES[employer] SALES CONSULTANT 11/14/2020 Ordered follow-up visit RTC 4-6 WEEKS NEW PATIENT CHARLOTTE LUATION with Elza Robles TEACHER ASST 09/21/2017 Assessments Includes: Assessments for all patient encounters Findings Encounter Date GERD STANDARD OV with Purvi Portillo N P 03/18/2021 Working diagnosis of gastric ulcer STANDARD OV with Purvi Portillo [employer] DES[employer] SALES CONSULTANT 03/18/2021 GERD STANDARD OV with Purvi Portillo N P 02/18/2021 GERD STANDARD OV with Purvi Portillo N P 01/16/2021 GERD EXTENDED VISIT with Purvi Spangler s [employer] DES[employer] SALES CONSULTANT 12/16/2020 GERD NEW PATIENT EVALUATION with Purvi Olvera ae Bandar LOPEZ 11/14/2020 Arthralgia of the left knee/patella/tibia/fibula NEW P ATIENT EVALUATION with Elza Ricci 09/21/2017 Instructions Instructions not supported for this document typeNo Instructions Recorded Medical Equipment - Implanted Devices Includes: Current and historical DevicesNo Medical Equipment Recorded Medications Includes: Current and historical Medications Current Medications (continue as prescribed) Famotidine 20 MG Oral Tablet 03/18/2021 - 04/17/2021 Provide r: Purvi Nasim Portillo [employer] DES[employer] SALES CONSULTANT Diagnosis: Gastro-esophageal re flux disease without esophagitis (GERD) TAKE 2 TABS (40MG) BY MOUTH ONCE DAILY Omeprazole 20 MG Oral Tablet Delayed Release 03/18/2021 - Provider: Purvi Portillo [employer] DES[employer] SALES CONSULTANT Diagnosis: Gastro-esophageal re flux disease without esophagitis (GERD) TAKE 1 TAB BY MOUTH ONCE DAILY Past Medications on file Famotidine 20 MG Oral Tablet 02/18/2021 - 03/18/2021 Provide r: Purvi Nasim Portillo [employer] DES[employer] SALES CONSULTANT Diagnosis: Gastro-esophageal re flux disease without esophagitis (GERD) TAKE 2 TABS (40MG) BY MOUTH ONCE DAILY Famotidine 20 MG Oral Tablet 01/16/2021 - 02/18/2021 Provide r: Purvi Nasim Portillo [employer] DES[employer] SALES CONSULTANT Diagnosis: Gastro-esophageal re flux disease without esophagitis (GERD) TAKE 1 TAB BY MOUTH ONCE DAILY Simethicone 80 MG Oral Tablet Chewable 12/16/2020 - 01/17/20 Provider: Purvi Portillo [employer] SALES CONSULTANT Diagnosis: Gastro-esophageal re flux disease without esophagitis (GERD) TAKE 1 TAB BY MOUTH 4x/DAY NEEDED AFTER MEALS AND AT BEDT BLOSSOM Medications Administered Includes: Administered Medications in patient's chartNo Administered Medications Recorded Vital Signs Includes: Vital Signs from 03/18/2020 through 03/18/2021 Vital Name 03/18/2021 08:35A 02/18/2021 07:58A 01/16/2021 08:34A 12/16/2020 08:02A 11/14/2020 10:16A Blood Pressure Sitting L 120/80 110/62 102/60 118/76 BP Cuff Size Regular Regular Regular Regular Regular Pulse Rate-Sitting (bpm) 87 82 92 72 72 Respiration Rate (breaths/min) 18 24 20 20 24 Temp-Tympanic (F) 96.7 98 97.8 97.4 98.6 Height (in) 65 65 65 65 65 Weight (lb) 172 170 165 166 160 Body Mass Index (kg/m2) 28.6 28.3 27.5 27.6 2 6.6 BMI Percentile (percentile) 91 90 89 89 86 Body Surface Area (m2) 1.86 1.85 1.82 1.83 1. 80 Oxygen Saturation (%) 93 98 98 98 98 Flow Rate (l/min) (None (Room Air)) (None (Room Air)) (None (Room Air)) FiO2 (%) 21 21 21 Blood Pressure Sitting R 122/68 Results Includes: Results from 03/18/2020 through 03/18/2021No Results Recorded For Specified Dates History of Present Illness History of Present Illness not supported for this document typeNo History of Present Illness Recorded Social History Description Last Updated Social history unchanged 03/18/2021 Smoking Status Unknown Procedures and Surgical History Includes: Procedures from 03/18/2020 through 03/18/2021No Procedures For Specified Dates. No Surgical History [...] AllergiesNo Known Allergies Encounters Includes: Encounters from 03/18/2020 through 03/18/2021 Encounter Provider Location Date Check-In Time Check-Out Time D iagnosis STANDARD OV [place] Nasim Bandar [employer] SALES CONSULTANT [facility], C 03/18/2021 8:24AM 9:08AM Gerd, Working Diagnosis [facility] G [facility] 02/18/2021 7:57AM 8:25AM Gerd [facility] [place] [employer] SALES CONSULTANT [facility], [facility] 01/16/2021 8:31AM 9:01AM Gerd EXTENDED VISIT Purvi Rouse Bandar [facility], 12/16/2020 7:54AM 8:23AM Gerd NEW PATIENT EVALUATION Purvifariha Rouse Bandar [facility], 11/14/2020 10:14AM 10:58AM Gerd Insurance Includes: Active Insurance Policies Plan Name Member ID Group # Subscriber Relationship Effective Da scott 1 - (AID) [facility] [id number] Rex guerra Self Advance Directives Includes: Current Advance DirectivesNo Advance Directives Recorded Health Concerns Includes: Active Health ConcernsNo Active Health Concerns Recorded Goals Includes: Active GoalsNo Active Goals Recorded Interventions Includes: Interventions for active GoalsNo Interventions Recorded Evaluations & Outcomes Includes: Evaluations & Outcomes for active GoalsNo Outcomes Recorded
[2021-04-13] MEDS ORDERED: FAMO1TAB11 PO (12:27)
[2021-04-13] MEDS ORDERED: OMEP-218 PO (12:27)
--- OUTSIDE RECORDS SUMMARY | 2021-04-13 14:58 | CCD ---
Author Author [facility] Organization [facility] Address Unknown Phone Unavailable Care Team Providers Care Pollution Control Chemist Name Role Phone Hospital Lab, [facility] Unavailable Unavailable TURRIN, JCARLOS Unavailable Unavailable TURRIN, JCARLOS Unavailable Unavailable TURRIN, JCARLOS Unavailable Unavailable TURRIN, JCARLOS Unavailable Unavailable Dilshad Arce Unavailable [phone] Dilshad Arce Unavailable [phone] Dilshad Arce Unavailable [phone] Dilshad Arce Unavailable [phone] Dilshad Arce Unavailable [phone] Dilshad Arce Unavailable [phone] Mami Winkler MD Unavailable Unavailable Mami Winkler [...] Winkler MD Unavailable Unavailable Bandar, Mariae Purvi EDUCATIONAL PROGRAM ASSISTANT Unavailable Unavailable Gay, Mariae Nickerson EDUCATIONAL PROGRAM ASSISTANT Unavailable Unavailable Bandar, Mariae Purvi EDUCATIONAL PROGRAM ASSISTANT Unavailable Unavailable Bandar, Mariae Nickerson EDUCATIONAL PROGRAM ASSISTANT Unavailable Unavailable Bandar, Mariae Purvi EDUCATIONAL PROGRAM ASSISTANT Unavailable Unavailable Gay, Mariae Nickerson EDUCATIONAL PROGRAM ASSISTANT Unavailable Unavailable Gay, Mariae Nickerson EDUCATIONAL PROGRAM ASSISTANT Unavailable Unavailable Gay, Mariae Nickerson EDUCATIONAL PROGRAM ASSISTANT Unavailable Unavailable Bandar, Mariae Purvi EDUCATIONAL PROGRAM ASSISTANT Unavailable Unavailable Bandar, Mariae Nickerson EDUCATIONAL PROGRAM ASSISTANT Unavailable Unavailable Bandar, Mariae Purvi EDUCATIONAL PROGRAM ASSISTANT Unavailable Unavailable Bandar, Mariae Nickerson EDUCATIONAL PROGRAM ASSISTANT Unavailable Unavailable Bandar, Mariae Nickerson EDUCATIONAL PROGRAM ASSISTANT Unavailable Unavailable Gay, Mariae Purvi EDUCATIONAL PROGRAM ASSISTANT Unavailable Unavailable Bandar, Mariae Nickerson EDUCATIONAL PROGRAM ASSISTANT Unavailable Unavailable Gay, Mariae Nickerson EDUCATIONAL PROGRAM ASSISTANT Unavailable Unavailable Gay, Mariae Nickerson EDUCATIONAL PROGRAM ASSISTANT Unavailable Unavailable DANITZA SETHI MD Unavailable Unavailable [...] Unavailable DANITZA SETHI MD Unavailable Unavailable DANITZA SEHTI MD Unavailable Unavailable DANITZA SETHI MD Unavailable Unavailable DANITZA SETHI MD Unavailable Unavailable GILDARDO SETHIALIFrances LUCERO Unavailable Unavailable DANITZA SETHI MD Unavailable Unavailable DANITZA SETHI MD Unavailable Unavailable DANITZA SETHI MD Unavailable Unavailable KARDOONI, BOSCH Unavailable Unavailable DANITZA SETHI MD Unavailable Unavailable NIURKA SETHIL Unavailable Unavailable DANITZA SETHI MD Unavailable Unavailable NIURKA SETHIL Unavailable Unavailable GILDADRO SETHIALIL Unavailable Unavailable JOSSIE, BOSCH Unavailable Unavailable [...] is protected by Article 27-F of the [facility] Public Health law. If you continue you may have access to information: Regarding HIV / AIDS; Provided by facilities licensed or operated by the [facility] Office of Mental Health; or Provided by the [facility] Office for People With Developmental Disabilities. If such information is present, then the following [facility] mandated warning applies: This information has [...] law may result in a fine or detention sentence or both. A general authorization for the release of medical or other information is NOT sufficient authorization for further disc losure. Allergies and Adverse Reactions Type Description Substance Reaction Status Data Source(s ) Allergy to substance No Known Allergies No known allergies (situation ) [facility]) Allergy to substance No Known Allergies No known allergies (situation ) [facility]) Allergy to substance No Known Allergies No known allergies (situation ) [facility]) Allergy to substance No Known Allergies No known allergies (situation ) [facility]) Allergy to substance No Known Allergies No known allergies (situation ) [facility]) No Known Allergies No Known Allergies [facility] Family History Family Member Name Family Member Gender Family Member Status Date o f Status Description Data Source(s) Unknown Unknown Problem MEDENT ([facility]) Unknown Unknown Problem MEDENT ([facility]) Encounters Encounter Providers Location Date Indications Data Source(s ) <td ID="encounterTypeDescriptionID0">RAUL LEONIDESSARAHI OV</td><td>Purvi Portillo EDUCATIONAL PROGRAM ASSISTANT</td><td>[facility]</td><td>03/18/2021</td><td>8:24AM</td><td>9:08AM</td><td><content ID="encounterDiagnosisID0-0">Gerd</content>, <content ID="encounterDiagnosisID0- 1">Working Diagnosis of Gastric Ulcer</content></td>Outpatient Attender: Purvi Portillo NP [facility] 03/18/2021 08:24:00 AM EDT - 03/18/2021 09:08:00 AM EDT Working Diagnosis of Gastric UlcerKhoid IRAAN ([facility]) Working Diagnosis of Gastric Ulcer Gerd Outpatient Attender: Prachi Winkler MD 1 12:39:14 PM EDT - 03/05/2021 02:09:39 PM EDT Heather ([facility]) Outpatient<td ID="encounterTypeDescripti onID1">STANDARD OV</td><td>Purvi Portillo NP</td><td>[facility]</td><td>02/18/2021</td><td>7:57AM</td><td>8:25AM</td><td><content ID="encounterDiagnosisID1-0">Gerd</content></td> Attender: Purvi Portillo NP [facility] 02/18/2021 07:57:00 AM EDT - 02/18/2021 08:25:00 AM EDT GerdGerd ALEXYS ([facility]) Gerd Gerd Outpatient<td ID="encounterTypeDescripti onID2">STANDARD OV</td><td>Purvi Portillo NP</td><td>[facility]</td><td>01/16/2021</td><td>8:31AM</td><td>9:01AM</td><td><content ID="encounterDiagnosisID2-0">Gerd</content></td> Attender: Purvi Portillo NP [facility] 01/16/2021 08:31:00 AM EDT - 01/16/2021 09:01:00 AM EDT Darryl REARDON ([facility]) Gerd Gerd Gerd Outpatient<td ID="encounterTypeDescripti onID3">EXTENDED VISIT</td><td>Purvi Portillo NP</td><td>[facility]</td><td>12/16/2020</td><td>7:54AM</td><td>8:23AM</td><td><content ID="encounterDiagnosisID3-0">Gerd</content></td> Attender: Purvi Portillo NP [facility] 12/16/2020 07:54:00 AM EDT - 12/16/2020 08:23:00 AM EDT Khris REARDON ([facility]) Gerd Gerd Gerd Gerd <td ID="encounterTypeDescriptionID4">NEW PATIENT EVALUATION</td><td>Purvi Portillo NP</td><td>[facility]</td><td>11/14/2020</td><td>10:14AM</td><td>10:58AM</td><td><content ID="encounterDiagnosisID4-0">Gerd</content></td>Outpatient Attender: Purvi Portillo NP [facility] 11/14/2020 10:14:00 AM EDT - 11/14/2020 10:58:00 AM EDT Roberth REARDON ([facility]) Gerd Gerd Gerd Gerd Gerd Outpatient Attender: Peter Reina PA-C 11/01/2020 01:21:35 PM EDT - 11/01/2020 02:37:29 PM EDT DocuT[facility] ([facility]) Outpatient Attender: Dilshad Arce 07/30 04:56:14 PM EST - 07/30/2020 05:50:20 PM EST [facility] ([facility] ) Outpatient Attender: [facility] 07/16/2020 11:4 0:00 PM [facility] Attender: JCARLOS Gunterant: DANITZA DUMONT MD 07/16/2020 11:27:00 PM EST - 07/17/2020 01:34:00 AM [facility] Patient discharged. Immunizations Vaccine Date Status Description Data Source(s) COVID-19 VACCINE Pfizer 02/13/2021 12:00:00 AM EDT completed [facility] Vaccine Series Complete: YESThis Data wa s Submitted to [facility]. COVID-19 VACCINE Pfizer 01/23/2021 12:00:00 AM EDT completed [facility] Vaccine Series Complete: NOThis Data was Submitted to [facility]. Medications Medication Brand Name Start Date Product Form Dose Route Admi nistrative Instructions Pharmacy Instructions Status Indications Reaction Description Data Source(s) Famotidine 20 MG Oral Tablet Famotidine 20 MG Oral Tablet 12:00:00 AM EDT active famotidine 20 MG Oral Tablet IRAAN ([facility]) Omeprazole 20 MG Delayed Release Oral Ta blet Omeprazole 20 MG Oral Tablet Delayed Release Omeprazole 20 MG Oral Tablet Delayed Release 12:00:00 AM EDT active omeprazole 20 MG Delayed Release Oral Tablet IRAAN ([facility]) Famotidine 20 MG Oral Tablet Famotidine 20 MG Oral Tablet 12:00:00 AM EDT aborted famotidine 20 MG Oral Tablet IRAAN ([facility]) Famotidine 20 MG Oral Tablet Famotidine 20 MG Oral Tablet 12:00:00 AM EDT aborted famotidine 20 MG Oral Tablet IRAAN ([facility]) Simethicone 80 MG Chewable Tablet Simethicone 80 MG Or al Tablet Chewable Simethicone 80 MG Oral Tablet Chewable 12/16/2020 12:00:00 AM EDT aborted simethicone 80 MG Chewable Table t IRAAN ([facility]) Insurance Providers Payer name Policy type / Coverage type Policy ID Covered democrat ID Covered democrat's relationship to menjivar Policy Menjivar Plan Information BS Holderness P Commercial [id number] Family Dependent Hmo Blue Option Health Maintenance Organization (HMO) [id number] Family Dependent [facility] Community Plan Health Maintenance Organization (HMO) [id number] Family Dependent [place] [employer] [id number] Self [id number] [place] [employer] [id number] Self [id number] [place] [employer] [id number] Self [id number] [facility] [id number] SKY [id number] SP [id number] UNHC COMMUNITY PLAN MCDO [id number] SP [id number] MEDICAID SBHC CO [id number] 2P [facility] [place] [facility] NYCDFHP [id number] Self [id number] Medicaid SBHC Commercial [id number] Self [id number] [facility](MCAID) O [id number] S [id number] UNHC COMMUNITY PLAN MCDO [id number] SP [id number] SELF PAY ONLY [id number] [facility] Health Maintenance Organization (HMO) [id number] Self [id number] UNHC AMERICHOICE HMO [id number] 18 [id number] MEDICAID [id number] SP [id number] UNHC AMERICHOICE XIX -HMO [id number] 18 [id number] MEDICAID [facility] [id number] 18 [id number] [employer] BCBS P [id number] S [id number] [facility](MCAID) O [id number] S [id number] Medicaid-Pcap Medicaid [id number] Family Dependent SELF PAY UNAVAILABLE SP UNAVAILA BLE HMO BLUE [id number] SP [id number] MEDICAID [id number] SP [id number] HMO BLUE [id number] SP [id number] [place] Individual Policy 0 [id number] Self 0 HMO BLUE [id number] SP [id number] [place] Individual Policy 0 [id number] Self 0 [place] Individual Policy 0 [id number] Self 0 [place] Individual Policy 0 [id number] Self 0 [place] Individual Policy 0 [id number] Self 0 SKY [id number] Problems, Conditions, and Diagnoses Code Display Name Description Problem Type Effective Dates Data Source(s) K047 Periapical abscess without sinus Periapical absc ess without sinus Diagnosis 07/16/2020 11:27:00 PM [facility] K0889 Other specified disorders of teeth and s upporting structures Other specified disorders of teeth and supporting structures Diagnosis 07/16/2020 11:27:00 PM [facility] 530.81 Gerd Gerd Problem 11/14/2020 12:00:00 AM ED T IRAAN ([facility]) 530.81 Gerd Gerd Problem 11/14/2020 12:00:00 AM ED T IRAAN ([facility]) 530.81 Gerd Gerd Problem 11/14/2020 12:00:00 AM ED T IRAAN ([facility]) 530.81 Gerd Gerd Problem 11/14/2020 12:00:00 AM ED T IRAAN ([facility]) 530.81 Gerd Gerd Problem 11/14/2020 12:00:00 AM ED T IRAAN ([facility]) Surgeries/Procedures No Information Results ID Date Data Source [id number] 03/05/2021 01:30:00 PM EDT [facility] Name Value Range Interpretation Code Description Data Cary rce(s) Supporting Document(s) SARS-CoV-2 RNA Resp Ql VENU+probe NOT DETECTED [facility] This lab was ordered by MARISABEL tobin and reported by MARISABEL Cotsa. ID Date Data Source [id number] 02/19/2021 05:03:00 PM EDT [facility] Name Value Range Interpretation Code Description Data Cary rce(s) Supporting Document(s) SARS coronavirus 2 RdRp gene Covid_negative [facility] This lab was ordered by [facility] and reported by orangutrans. ID Date Data Source [id number] 02/12/2021 05:45:00 PM EDT [facility] Name Value Range Interpretation Code Description Data Cary rce(s) Supporting Document(s) SARS coronavirus 2 RdRp gene Covid_negative [facility] This lab was ordered by [facility] and reported by [facility]ang[facility]. ID Date Data Source [id number] 02/05/2021 05:13:00 PM EDT [facility] Name Value Range Interpretation Code Description Data Cary rce(s) Supporting Document(s) SARS coronavirus 2 RdRp gene Covid_negative [facility] This lab was ordered by VEE cordoba nd reported by orangutrans. ID Date Data Source [id number] 07/16/2020 11:27:00 PM EST [facility] 1 OrderSheet [facility] Emergency Department [address] [place] [address] Phone #: ext- [phone] 07/16/2020 23:27 Patient: [...] Culture STAT 23:42 07/16/2020 23:53 Virginie,q10m X2 (Sched Jcarlos Layton R.N.23:42 07/16/2020) Vamsi;Blood Culture STAT 23:42 07/16/2020 00:03 07/17/2020q10m X2 (Sched Jcarlos Layton Laura23:52 07/16/2020) Vamsi; R.N.DIAGNOSTIC STUDY ORDERSOrder Description Priority Entered Acknowledged Initi aledMEDICATION/IV/DRIP/FLUID ORDERSOrder Description Priority Entered Acknowledged InitialedNS IV 1000 mL 23:42 07/16/2020 00:00 07/17/2020olus: : Bolus 1000 Jcarlos Layton GregorymL (X1) Vamsi;Ibuprofen 800 mg 23:42 07/16/2020 00:00 1PO X1 dose: 800 Jcarlos Layton Gregorymg (NOW x1) Vamsi;Clindamycin IVPB 23:42 07/16/2020 00:04 07/17/2020 2 OrderSheet [facility] Emergency Department [address] [place] [address] Phone #: ext- [phone] 07/16/2020 23:27 Patient: REX PRESCOTT Sex: F : 2000 Age: 35q262 mg Jcarlos Layton Laura M.D.; R.N.NS IV 1000 mL 00:41 07/17/2020 00:45 Melzaira,Bolus: : Bolus 1000 Jcarlos Layton.N.mL (X1) Vamsi;GENERAL ORDERSOrder Description Priority Entered Acknowledged InitialedNPO 23:42 07/16/2020 23:53 MelaragnKinjal claros Riccardo Laura R.N. M.D.;Saline Lock 23:42 07/16/2020 23:53 Kinjal Rachel Riccardo Laura R.N. M.D.;[Electronically signed by Leroy Jiang (01:35 07/17/2020)][Electronically signed by Jcarlos Layton M.D. (03:07 07/17/2020)][Electronically locked by Leroy Jiang (01:35 07/17/2020)] Name Value Range Interpretation Code Description Data Cary rce(s) Supporting Document(s) ID Date Data Source [id number] 07/16/2020 11:27:00 PM EST [facility] 1 Medication Reconciliation Report [facility] Emergency Department [address] [place] [address] Phone #: ext- [phone] 07/16/2020 23:27 Patient: [...] Dispense 28 capsule.Refills: 0. Substitution permitted.Pharmacy - [facility] [id number] ; [place] [address]. . -- Jcarlos Layton M.D. Name Value Range Interpretation Code Description Data Cary rce(s) Supporting Document(s) ID Date Data Source [id number] 07/16/2020 11:27:00 PM EST [facility] 1 Medication Administration Record [facility] Emergency Department [address] [place] [address] Phone #: ext- [phone] 07/16/2020 23:27 Patient: REX PRESCOTT Sex: F : 2000 Age: 19yWeight: 72.5 kgHeight/Length: 65 inBMI: 26.6ALLERGIES: No Known Drug Allergy Date/Time Medication Administered Medication OrderedStart NS [IV] NS IV 1000 mL Bolus: : Bolus 911034:59 07/16/2020 Dose: IV Fluids mL (X1)Leroy Jiang, Bolus: 1000 mL wide open---- Dispensed: 1000 mL bagStop Site: #1 left npixiaj91:00 07/17/2020Sarah Rachel, R.NZacharyGiven IBUPROFEN [PO] Ibuprofen 800 mg PO X1 dose: 10407:00 07/17/2020 Dose: 800 mg Tablets PO mg (NOW x1)Leroy JiangStart CLINDAMYCIN [IVPB] Clindamycin IVPB 900 mg00:04 07/17/2020 Dose: 900 mg IVPBMelar Sarah london, R.NZachary Rate: 100 mL/hr over 30 minute(s)---- Dispensed: 50 mL bagStop Site: #1 left eabqyig40:40 07/17/2020Sarah RachelCatinaStart SODIUM CHLORIDE [IV] NS IV 1000 mL Bolus: : Bolus 341847:45 07/17/2020 Dose: IV Fluids mL (X1)Sarah Rachel R.N. Bolus: 1000 mL wide open---- Dispensed: 1000 mL bagStop Site: #1 left ybcntlo65:26 07/17/2020Sarah Rachel R.N. Name Value Range Interpretation Code Description Data Cary rce(s) Supporting Document(s) ID Date Data Source [id number] 07/16/2020 11:27:00 PM EST [facility] 1 General Instructions [facility] Emergency Department [address] [place] [address] Phone #: ext- [phone] 07/16/2020 23:27 Patient: REX PRESCOTT Sex: F [...] Dispense 28 capsule.Refills: 0. Substitution permitted.Pharmacy - [facility] [phone] ; [place] [address]. .Follow-up:Return to the emergency department as needed. [...] or biting on hard 2 General Instructions [facility] Emergency Department [address] [place] [address] Phone #: ext- [phone] 07/16/2020 23:27 Patient: [...] reduce pain. Oil of cloves is sold xawj-dkt-blwohxp in pharmacies. Some pharmacies carry an ooyn-ppn-unnkscc "toothache kit." This contains oil of cloves [...] or an ice pack 3 General Instructions [facility] Emergency Department [address] [place] [address] Phone #: ext- [phone] 07/16/2020 23:27 Patient: [...] sooner.Follow-up careFollow up as advised with an sulphate tester, or oral surgeon. Even though your pain may improve withthe treatment given today, only a dentist, sulphate tester, or oral surgeon can provide full treatment forthis problem. If a culture was done, you will be told if the treatment needs to be changed. You can call in as directed for the results. If X-rays were taken, they will be reviewed by a specialist. You will be given the results, especially if they affect treatment.Call [phone] if any of these occur: Trouble breathing [...] by your healthcare provider 4 General Instructions [facility] Emergency Department [address] [place] [address] Phone #: ext- [phone] 07/16/2020 23:27 Patient: REX PRESCOTT Sex: F : 2000 Age: 19y Unusual drowsiness, a headache or stiff neck, or weakness Pus drains from the gum or tooth You can't open your mouth wide [phone] [employer]. [address] [place] [address]. All rights reserved. This information is not [...] to. For example, take 5 General Instructions [facility] Emergency Department [address] [place] [address] Phone #: ext- [phone] 07/16/2020 23:27 Patient: [...] rejection medicines. If you 6 General Instructions [facility] Emergency Department [address] [place] [address] Phone #: ext- [phone] 07/16/2020 23:27 Patient: REX PRESCOTT Sex: F : 2000 Age: 19y are not sure about whether your medicines suppress your immune system, ask your healthcare provider.Call 911Someone should call 911 if you: Are having trouble breathing or shortness of breath Are unresponsiveImportant reminderCall your healthcare provider if you get a fever after visiting a place where infectious diseases arecommon. Many people potato picker a cold or other virus while [...] you travelled and where you stayed (hotel, [place], tent) What you ate and drank If you were bitten by insects or other bugs If you swam in freshwater If you had sex or got a tattoo or piercing while you were thereCheck the [facility] to get more information about specific infectious diseases in the areas you havetraveled. [phone] [employer]. [address] [place] [address], [place] [address]. All rights reserved. This information is not intended as asubstitute for professional medical care. Always follow your healthcare professional's instructions. You have been given the following additional information: Tooth Abscess Fever Control (Adult) 7 General Instructions [facility] Emergency Department [address] [place] [address] Phone #: ext- [phone] 07/16/2020 23:27 Patient: REX PRESCOTT Sex: F : 2000 Age: 19y(Electronically signed by Jcarlos Layton M.D. 07/17/2020 03:07) Name Value Range Interpretation Code Description Data Cary rce(s) Supporting Document(s) ID Date Data Source [id number] 07/16/2020 11:27:00 PM EST [facility] 1 Clinical Report - Nurses [facility] Emergency Department [address] [place] [address] Phone #: ext- [phone] 07/16/2020 23:27 Patient: [...] also took Benadryl about 2 hrs ago.).Treatment LOCOMOTIVE OBSERVER:(penicillin and benadryl).SEPSIS SCREEN: SIRS SCREEN POSITIVE: temperature [...] harming or 2 Clinical Report - Nurses [facility] Emergency Department [address] [place] [address] Phone #: ext- [phone] 07/16/2020 23:27 Patient: [...] Leroy Jiang 3 Clinical Report - Nurses [facility] Emergency Department [address] [place] [address] Phone #: ext- [phone] 07/16/2020 23:27 Patient: REX PRESCOTT Sex: F [...] Rachel R.N. 4 Clinical Report - Nurses [facility] Emergency Department [address] [place] [address] Phone #: ext- [phone] 07/16/2020 23:27 Patient: REX PRESCOTT Sex: F [...] Patient verbalized understanding. Written instructions provided in Jordanian. No treatment instructions. The patient was discharged by the physician. She was discharged home and accompanied by parent. She left ambulatory and via private vehicle. Parent driving. --01:35 07/17/20 Leroy Jiang.Locked/Released at 07/17/2020 01:35 by Leroy Jiang Name Value Range Interpretation Code Description Data Cary rce(s) Supporting Document(s) ID Date Data Source [id number] 07/16/2020 11:27:00 PM [facility] 1 Clinical Report - Physicians/Mid Levels [facility] Emergency Department [address] [place] [address] Phone #: ext- [phone] 07/16/2020 23:27 Patient: [...] EXAM 2 Clinical Report - Physicians/Mid Levels [facility] Emergency Department [address] [place] [address] Phone #: ext- [phone] 07/16/2020 23:27 Patient: REX PRESCOTT Sex: F : 2000 Age: 19y Vital Signs: 07/16/2020 23:27 BP: 132/86. MAP: 101. HR: 121. RR: 18. O2 saturation: 98%. Temp: 101.1 F. Pain level now: 10/10. Have been reviewed. Tachycardic. Febrile. Oxygen saturation [...] PANEL 3 Clinical Report - Physicians/Mid Levels [facility] Emergency Department [address] [place] [address] Phone #: [phone] cqa- [phone] 07/16/2020 23:27 Patient: REX PRESCOTT Sex: F [...] NEGATIVE (NORMAL: NEGAT { KIT LOT # [id number] ){ KIT EXP DATE [id number] ){ PROCEDURAL CONTROL VALID ) Lactic Acid: [...] store. 4 Clinical Report - Physicians/Mid Levels [facility] Emergency Department [address] [place] [address] Phone #: ext- [phone] 07/16/2020 23:27 [id number] Sex[facility] F : 2000 Age: 19y Patient [...] capsule. Refills: 0. Substitution permitted. Pharmacy - [facility] [phone] ; [place] [address]. . Follow- up: Return to the emergency department as needed. Follow up with a dentist today as scheduled even if well. Reason for referral: evaluation and treatment. Summary of care provided to patient via paper. 5 Clinical Report - Physicians/Mid Levels [facility] [place] [address] Phone #: ext- [phone] 07/16/2020 23:27 Patient: REX PRESCOTT Sex: F : 2000 Age: 19y(Electronically signed by Jcarlos Layton M.D. 07/17/2020 03:07) Name Value Range Interpretation Code Description Data Cary rce(s) Supporting Document(s) ID Date Data Source [id number] 07/22/2020 12:57:00 PM [facility] Name Value Range Interpretation Code Description Data Cary rce(s) Supporting Document(s) CULTURE BLOOD [facility] _CULTURE BLOOD_{ PRELIM TEST PERFORMED AT [address] [address] CLIA# [id number] SEE SCANNED REPORT ID Date Data Source [id number] 07/22/2020 07:41:00 AM EST [facility] [id number] Name Value Range Interpretation Code Description Data Cary rce(s) Supporting Document(s) Bacteria identified in Blood by Culture [facility] NO GROWTH AFTER 5 DAYS ID Date Data Source [id number] 07/22/2020 12:57:00 PM [facility] Name Value Range Interpretation Code Description Data Cary rce(s) Supporting Document(s) CULTURE BLOOD [facility] _CULTURE BLOOD_{ PRELIM TEST PERFORMED AT [address] [address] CLIA# [id number] SEE SCANNED REPORT ID Date Data Source [id number] 07/17/2020 12:31:00 AM [facility] Name Value Range Interpretation Code Description Data Cary rce(s) Supporting Document(s) COMPREHENSIVE METABOLIC PANEL [facility] COMPREHENSIVE METABOLIC PANEL Sodium [Moles/volume] in Serum or Plasma 136 mEq/L 134 - 153 [facility] Potassium [Moles/volume] in Serum or Plasma 3.9 mEq/L 3.6 - 5.0 [facility] Chloride [Moles/volume] in Serum or Plasma 100 mEq/L 98 - 107 [facility] Carbon dioxide, total [Moles/volume] in Serum or Plasma 22 MEQ/L 22 - 30 [facility] Glucose [Mass/volume] in Serum or Plasma 120 MG/DL 70 - 99 H [facility] BUN 8 MG/DL 7 - 21 [facility] al Creatinine [Mass/volume] in Serum or Plasma 0.6 MG/DL 0.7 - 1.5 L [facility] BUN/CREAT 13 8 - 27 [facility] Protein [Mass/volume] in Serum or Plasma 7.4 G/DL 6.3 - 8.2 [facility] Albumin [Mass/volume] in Serum or Plasma 4.5 G/DL 3.9 - 5.0 [facility] Globulin [Mass/volume] in Serum by calculation 2.9 GM/DL 2.4 - 3.2 [facility] A/G RATIO 1.6 0.8 - 2.0 [facility] Calcium [Mass/volume] in Serum or Plasma 9.6 MG/DL 8.4 - 10.2 [facility] Bilirubin.total [Mass/volume] in Serum or Plasma 1.9 MG/DL 0.2 - 1.3 H [facility] Alkaline phosphatase [Enzymatic activity/volume] in Serum or Plasma 51 U/L 38 - 126 [facility] Aspartate aminotransferase [Enzymatic activity/volume] in Serum or Plasma 15 U/L 5 - 40 [facility] Alanine aminotransferase [Enzymatic activity/volume] in Seru m or Plasma 10 U/L 7 - 56 [facility] Anion gap 3 in Serum or Plasma 14.0 mmol/L 8.0 - 16.0 [facility] 19 [facility] >60 [facility]/min [facility] AFR AMER GFR >60 mL/min [facility] Male GFR In terprentation [...] >32 mL/min Normal ID Date Data Source [id number] 07/17/2020 12:20:00 AM EST [facility] Name Value Range Interpretation Code Description Data Cary rce(s) Supporting Document(s) HCG SERUM QUAL NEGATIVE NORMAL: NEGATIVE [facility] HCG SERUM QL REENTER NEGATIVE NORMAL: NEGATIVE [facility] { KIT LOT # [id number] ){ KIT EXP DATE [id number] ){ PROCEDURAL CONTROL VALID ) ID Date Data Source [id number] 07/17/2020 12:20:00 AM EST [facility] Name Value Range Interpretation Code Description Data Cary rce(s) Supporting Document(s) CBC W/AUTOMATED DIFF [facility] COMPLETE BLOOD COUNT Leukocytes [#/volume] in Blood by Automated count 8.8 10^3/uL 4.2 - 1 1.0 [facility] Erythrocytes [#/volume] in Blood by Automated count 4.34 10^6/uL 4. 20 - 5.40 [facility] Hemoglobin [Mass/volume] in Blood 13.1 g/dL 12.0 - 16.0 [facility] Hematocrit [Volume Fraction] of Blood by Automated count 37.8 % 3 7.0 - 47.0 [facility] Erythrocyte mean corpuscular volume [Entitic volume] by Auto mated count 87.1 fL 81.0 - 101 [facility] Erythrocyte mean corpuscular hemoglobin [Entitic mass] by Automated count 30.2 pg 27.0 - 34.0 [facility] Erythrocyte mean corpuscular hemoglobin concentration [Mass/volume] by Automated count 34.7 g/dL 31.0 - 36.0 [facility] Erythrocyte distribution width [Ratio] by Automated count 11.6 % 11.5 - 14.5 [facility] Platelets [#/volume] in Blood by Automated count 312 10^3/uL 150 - 45 0 [facility] Platelet mean volume [Entitic volume] in Blood by Automated count 9.0 fL 7.4 - 10.4 [facility] Neutrophils/100 leukocytes in Blood by Automated count 86.0 % 37. 0 - 80.0 H [facility] Lymphocytes/100 leukocytes in Blood by Manual count 5.7 % 25.0 - 40.0 L [facility] Monocytes/100 leukocytes in Blood by Automated count 6.3 % 3.0 - 8.0 [facility] Eosinophils/100 leukocytes in Blood by Automated count 1.4 % 0.0 - 7.0 [facility] Basophils/100 leukocytes in Blood by Automated count 0.3 % 0.0 - 2.5 [facility] %IG 0.3 % 0.0 - 0.0 H [facility] %NRBC 0.0 % 0.0 - 0.0 [facility] al Neutrophils [#/volume] in Blood by Automated count 7.58 10^3/uL 2.00 - 6.90 H [facility] Lymphocytes [#/volume] in Blood by Automated count 0.50 10^3/uL 0.60 - 3.40 L [facility] Monocytes [#/volume] in Blood by Automated count 0.56 10^3/uL 0.00 - 0.90 [facility] Eosinophils [#/volume] in Blood by Automated count 0.12 10^3/uL 0.00 - 0.70 [facility] Basophils [#/volume] in Blood by Automated count 0.03 10^3/uL 0.00 - 0.20 [facility] #IG 0.03 10^3/uL 0.00 - 0.10 [facility] #NRBC 0.00 10^3/uL 0.00 - 0.00 [facility] MANUAL DIFF NOT INDICATED [facility] RBC MORPH NOT INDICATED [facility] ID Date Data Source [id number] 07/17/2020 12:20:00 AM EST [facility] Name Value Range Interpretation Code Description Data Cary rce(s) Supporting Document(s) Lactate [Moles/volume] in Serum or Plasma 1.2 MMOL/L 0.2 - 2.2 [facility] Procedure Social History No Information Vital Signs ID Date Data Source UNK Name Value Range Interpretation Code Description Data Source(s) Systolic blood pressure 120 mm[Hg] 120 mm[Hg] [facility] ([facility]) Diastolic blood pressure 80 mm[Hg] 80 mm[Hg] [facility] ([facility]) Heart rate 87 /min 87 /min [facility] ([facility]) Respiratory rate 18 /min 18 /min [facility] ([facility]) Body temperature 96.7 [degF] 96.7 [degF] [facility] ([facility]) Body height 65 [in_i] 65 [in_i] [facility] ([facility]) Body weight 172 [lb_av] 172 [lb_av] [facility] ([facility]) Body mass index (BMI) [Ratio] 28.6 kg/m2 28.6 k g/m2 [facility] ([facility]) Body mass index (BMI) [Percentile] 91 {percentile} 91 {percentile} [facility] ([facility]) Body surface area Derived from formula 1.86 m2 1.86 m2 [facility] ([facility]) Oxygen saturation in Arterial blood by Pulse oximetry 93 % 93 % [facility] ([facility]) Inhaled oxygen flow rate 0 L/min 0 L/min [facility] ([facility]) Inhaled oxygen concentration 21 % 21 % [facility] ([facility]) Systolic blood pressure 110 mm[Hg] 110 mm[Hg] [facility] ([facility]) Diastolic blood pressure 62 mm[Hg] 62 mm[Hg] [facility] ([facility]) Heart rate 82 /min 82 /min [facility] ([facility]) Respiratory rate 24 /min 24 /min [facility] ([facility]) Body temperature 98 [degF] 98 [degF] [facility] ([facility]) Body height 65 [in_i] 65 [in_i] [facility] ([facility]) Body mass index (BMI) [Ratio] 28.3 kg/m2 28.3 k g/m2 [facility] ([facility]) Body mass index (BMI) [Percentile] 90 {percentile} 90 {percentile} [facility] ([facility]) Body surface area Derived from formula 1.85 m2 1.85 m2 [facility] ([facility]) Oxygen saturation in Arterial blood by Pulse oximetry 98 % 98 % [facility] ([facility]) Inhaled oxygen flow rate 0 L/min 0 L/min [facility] ([facility]) Inhaled oxygen concentration 21 % 21 % [facility] ([facility]) Body weight 170 [lb_av] 170 [lb_av] [facility] ([facility]) Systolic blood pressure 102 mm[Hg] 102 mm[Hg] [facility] ([facility]) Diastolic blood pressure 60 mm[Hg] 60 mm[Hg] [facility] ([facility]) Heart rate 92 /min 92 /min [facility] ([facility]) Respiratory rate 20 /min 20 /min [facility] ([facility]) Body temperature 97.8 [degF] 97.8 [degF] [facility] ([facility]) Body height 65 [in_i] 65 [in_i] [facility] ([facility]) Body weight 165 [lb_av] 165 [lb_av] [facility] ([facility]) Body mass index (BMI) [Ratio] 27.5 kg/m2 27.5 k g/m2 [facility] ([facility]) Body mass index (BMI) [Percentile] 89 {percentile} 89 {percentile} [facility] ([facility]) Body surface area Derived from formula 1.82 m2 1.82 m2 [facility] ([facility]) Oxygen saturation in Arterial blood by Pulse oximetry 98 % 98 % [facility] ([facility]) Systolic blood pressure 118 mm[Hg] 118 mm[Hg] [facility] Diastolic blood pressure 76 mm[Hg] 76 mm[Hg] [facility] ([facility]) Heart rate 72 /min 72 /min [facility] ([facility]) Respiratory rate 20 /min 20 /min [facility] ([facility]) Body temperature 97.4 [degF] 97.4 [degF] [facility] ([facility]) Body height 65 [in_i] 65 [in_i] [facility] ([facility]) Body weight 166 [lb_av] 166 [lb_av] [facility] ([facility]) Body mass index (BMI) [Ratio] 27.6 kg/m2 27.6 k g/m2 [facility] ([facility]) Body mass index (BMI) [Percentile] 89 {percentile} 89 {percentile} [facility] ([facility]) Body surface area Derived from formula 1.83 m2 1.83 m2 [facility] ([facility]) Oxygen saturation in Arterial blood by Pulse oximetry 98 % 98 % [facility] ([facility]) Systolic blood pressure 122 mm[Hg] 122 mm[Hg] [facility] ([facility]) Diastolic blood pressure 68 mm[Hg] 68 mm[Hg] [facility] ([facility]) Heart rate 72 /min 72 /min [facility] ([facility]) Respiratory rate 24 /min 24 /min [facility] ([facility]) Body temperature 98.6 [degF] 98.6 [degF] [facility] ([facility]) Body height 65 [in_i] 65 [in_i] [facility] ([facility]) Body weight 160 [lb_av] 160 [lb_av] [facility] ([facility]) Body mass index (BMI) [Ratio] 26.6 kg/m2 26.6 k g/m2 [facility] ([facility]) Body mass index (BMI) [Percentile] 86 {percentile} 86 {percentile} [facility] ([facility]) Body surface area Derived from formula 1.80 m2 1.80 m2 [facility] ([facility]) Oxygen saturation in Arterial blood by Pulse oximetry 98 % 98 % [facility] ([facility]) Inhaled oxygen flow rate 0 L/min 0 L/min [facility] ([facility]) Inhaled oxygen concentration 21 % 21 % [facility] ([facility]) Patient Treatment Plan of Care Planned Activity Planned Date Details Description Data Source (s) Omeprazole 20 MG Delayed Release Oral Tablet 03/18/2021 12:00:00 AM EDT [facility] ([facility]) Famotidine 20 MG Oral Tablet 03/18/2021 12:00:00 AM EDT [facility] ([facility]) Famotidine 20 MG Oral Tablet 02/18/2021 12:00:00 AM EDT [facility] ([facility]) Famotidine 20 MG Oral Tablet 01/16/2021 12:00:00 AM EDT [facility] ([facility]) Simethicone 80 MG Chewable Tablet 12/16/2020 12:00:00 AM EDT [facility])
[2021-04-13] MEDS ORDERED: KETOROLAC TROMETHAMINE 10 MG TAB PO ONE (15:45)
[2021-04-13 16:52] LABS: BASO % 0.5 % (0.0-1.0); EOS # 0.2 10^3/uL (0.0-0.5); EOS % 2.3 % (0.0-3.0); HEMATOCRIT 40.5 % (36.0-47.0); HEMOGLOBIN 13.8 g/dl (12.0-15.5); LYMPH # 1.6 10^3/uL (1.5-5.0); LYMPH % 25.3 % (24.0-44.0); MEAN CORPUSCULAR HEMOGLOBIN 30.5 pg (27.0-33.0); MEAN CORPUSCULAR HGB CONC 34.1 g/dl (32.0-36.5); MEAN CORPUSCULAR VOLUME 89.6 fl (80.0-96.0); MONO # 0.5 10^3/uL (0.0-0.8); MONO % 6.9 % (2.0-8.0); NEUTROPHILS # 4.2 10^3/uL (1.5-8.5); NEUTROPHILS % 64.7 % (36.0-66.0); PLATELET COUNT, AUTOMATED 311 10^3/uL (150-450); RED BLOOD COUNT 4.52 10^6/uL (4.00-5.40); WHITE BLOOD COUNT 6.5 10^3/uL (4.0-10.0)
[2021-04-13 17:05] LABS: ALBUMIN 4.3 GM/DL (3.2-5.2); BILIRUBIN,DIRECT 0.3 MG/DL (0.0-0.2); BILIRUBIN,TOTAL 1.6 MG/DL (0.2-1.0)
--- NOTE | 2021-04-13 17:16 | REP ---
INDICATION: right rib pain COMPARISON: None. TECHNIQUE: Frontal view of the chest with multiple views of the right hemithorax. Five total views. FINDINGS: Frontal view of the chest demonstrates no acute cardiopulmonary process, contusion, effusion, or pneumothorax. Multiple views of the right hemithorax demonstrates no acute rib fracture/injury or pathology. IMPRESSION: Normal rib series. <Electronically signed by Benoit Bravo > 04/13/21 [id number]
--- NOTE | 2021-04-13 17:59 | REP ---
INDICATION: ruq pain COMPARISON: None. TECHNIQUE: Real time marinelli scale ultrasound examination using curved array transducer. FINDINGS: Liver and pancreas are normal in contour, size, and echogenicity without focal hepatic or pancreatic lesions identified. The gallbladder is normal and without gallstones, wall thickening, or pericholecystic fluid. No biliary ductal dilatation is appreciated and the common bile duct measures 3.2 mm diameter. Right kidney is normal in reniform shape without hydronephrosis and measures 12.3 x 3.3 x 3.6 cm. No ascites in the visualized right upper quadrant. IMPRESSION: Normal limited right upper quadrant ultrasound <Electronically signed by Benoit Bravo > 04/13/21 [id number]
--- NOTE | 2021-04-13 18:37 | ECGEPIP ---
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
[2021-04-13] MEDS ORDERED: ISOVUE-370 76% 100ML VIAL As Ordered ONE (19:23)
[2021-04-13] MEDS ORDERED: diphenhydrAMINE 50MG/ML VIAL (J1200) IV STA (20:17)
--- NOTE | 2021-04-13 20:22 | REPVR ---
PROCEDURE INFORMATION: Exam: CTA Chest With Contrast Exam date and time: 04/13/2021 7:28 PM Age: 20 years old Clinical indication: Pain; Angina pectoris; Additional info: Cp TECHNIQUE: Imaging protocol: Computed tomographic angiography of the chest with contrast. Axial, coronal and sagittal reformatted images were created and reviewed. 3D rendering (Not supervised by radiologist): MIP and/or 3D reconstructed images were created by the technologist. Radiation optimization: All CT scans at this facility use at least one of these dose optimization techniques: automated exposure control; mA and/or kV adjustment per patient size (includes targeted exams where dose is matched to clinical indication); or iterative reconstruction. Contrast material: ISOVUE 370; Contrast volume: 75 ml; Contrast route: INTRAVENOUS (IV); COMPARISON: CR Ribs uni W-PA CHEST ONLY RIGHT 04/13/2021 4:58 PM FINDINGS: Pulmonary arteries: Contrast opacification satisfactory. No intraluminal filling defect. Aorta: Unremarkable. No aneurysm or dissection. Lungs: Unremarkable. No consolidation. No mass. Pleural spaces: Unremarkable. No pneumothorax. No pleural effusion. Heart: Unremarkable. No cardiomegaly. No pericardial effusion. Lymph nodes: No pathologically enlarged lymph nodes. Bones/joints: No acute osseous abnormality. Soft tissues: Unremarkable. IMPRESSION: No CT evidence of pulmonary embolism. Electronically signed by: Zoran Baptiste On 04/13/2021 20:22:17 PM
[2021-04-13] MEDS ORDERED: IBUP-1022 PO (20:32)
[2021-04-13 20:54] VITALS: BP 135/77
== END 2021-04-13 21:20 | disposition home or self-care (01) ==
LOC: M ED 11:49
DX: R07.89 Other chest pain (principal); R10.9 Unspecified abdominal pain; R19.7 Diarrhea, unspecified; R51.9 Headache, unspecified; K58.8 Other irritable bowel syndrome; K21.9 Gastro-esophageal reflux disease without esophagitis; F41.9 Anxiety disorder, unspecified; Z79.899 Other long term (current) drug therapy
CPT/HCPCS: 71101; 71275; 76705; 80047; 80076; 83690; 84702; 85025; 85379; 93005; 96374; 99284; J1200; Q9967

== ENCOUNTER → 2021-06-22 | Outpatient (CLI) | payer OTHER ==
[~2021-06-22] MED LIST changes: +FAMO1TAB11 PO; +METH-1164 PO; +OMEP-173 PO
== END ==
LOC: M LABSMTC 09:24
PROVIDERS: ATTEND Anesthesiology
DX: Z01.818 Encounter for other preprocedural examination (principal); Z11.52 Encounter for screening for COVID-19

== ENCOUNTER 2021-06-23 09:18 | Emergency (ER) | payer OTHER ==
[~2021-06-23] VITALS: Ht 170.2 cm; Wt 82.6 kg
[~2021-06-23 09:18] MED LIST changes: -METH-1164 PO
[2021-06-23] MEDS ORDERED: LIDOCAINE 5% (LIDODERM) PATCH TD ONE (11:15)
[2021-06-23] MEDS ORDERED: KETOROLAC 30 MG/ML 1ML VIAL IM ONE (11:15)
[2021-06-23] MEDS ORDERED: METH-1164 PO (11:18)
[2021-06-23 12:01] VITALS: BP 110/72
[2021-06-23] MEDS ORDERED: **NOTE PATIENT COMMENT** MISC XX SCH (21:00)
== END 2021-06-23 12:00 | disposition home or self-care (01) ==
LOC: M ED 09:18
DX: S23.3XXA Sprain of ligaments of thoracic spine, initial encounter (principal); M54.6 Pain in thoracic spine; X50.0XXA Overexertion from strenuous movement or load, initial encounter; Y92.39 Other specified sports and athletic area as the place of occurrence of the external cause; Y93.B3 Activity, free weights; Y99.8 Other external cause status; K58.9 Irritable bowel syndrome, unspecified; Z79.899 Other long term (current) drug therapy
CPT/HCPCS: 96372; 99283; J1885

== ENCOUNTER 2021-06-26 09:49 | Day surgery (SDC) | payer OTHER ==
[~2021-06-26] VITALS: Ht 165.1 cm; Wt 81.8 kg
[~2021-06-26 09:49] MED LIST changes: +METH-1164 PO; +NS 1,000 ML IV ONE
[2021-06-26] MEDS ORDERED: fentaNYL 100 MCG/2 ML INJECTION (J3010) As Ordered ONE (12:30)
[2021-06-26] MEDS ORDERED: propofoL 200 MG/20 ML VIAL As Ordered ONE ×2 (12:31→13:20)
[2021-06-26] MEDS ORDERED: LIDOCAINE 2% 100MG/5ML SDV (FOR ANES.) As Ordered ONE (12:31)
[2021-06-26 13:50] VITALS: BP 116/58
== END 2021-06-26 14:03 | disposition home or self-care (01) ==
LOC: M OPP 09:49
PROVIDERS: ATTEND Internal Medicine Gastroenterology
DX: K62.89 Other specified diseases of anus and rectum (principal); K64.8 Other hemorrhoids; R19.4 Change in bowel habit; K29.70 Gastritis, unspecified, without bleeding; R10.13 Epigastric pain
CPT/HCPCS: 43239; 45380; 88305; 88342; J3010

== ENCOUNTER → 2023-04-14 | Outpatient (REF) | payer OTHER ==
[~2023-04-14] MED LIST changes: -NS 1,000 ML IV ONE
[2023-04-14 21:37] LABS: CHLAMYDIA DNA AMPLIFICATION NEGATIVE (NEGATIVE); GC DNA AMPLIFICATION NEGATIVE (NEGATIVE)
== END ==
LOC: M LAB REF 19:55
PROVIDERS: ATTEND Student in an Organized Health Care Education/Training Program
DX: R30.0 Dysuria (principal)

== ENCOUNTER → 2023-10-14 | Outpatient (CLI) | payer OTHER ==
[2023-10-14 11:19] LABS: BASO % 0.6 % (0.0-1.0); EOS # 0.1 10^3/uL (0.0-0.5); EOS % 2.4 % (0.0-3.0); HEMATOCRIT 39.5 % (36.0-47.0); HEMOGLOBIN 13.3 g/dl (12.0-15.5); LYMPH # 1.5 10^3/uL (1.5-5.0); LYMPH % 29.8 % (24.0-44.0); MEAN CORPUSCULAR HGB CONC 33.7 g/dl (32.0-36.5); MEAN CORPUSCULAR VOLUME 92.1 fl (80.0-96.0); MONO # 0.4 10^3/uL (0.0-0.8); MONO % 8.5 % (2.0-8.0); NEUTROPHILS % 58.5 % (36.0-66.0); PLATELET COUNT, AUTOMATED 283 10^3/uL (150-450); RED BLOOD COUNT 4.29 10^6/uL (4.00-5.40); WHITE BLOOD COUNT 5.1 10^3/uL (4.0-10.0)
[2023-10-14 11:44] LABS: ALBUMIN 4.1 G/DL (3.2-5.2); ALKALINE PHOSPHATASE 59 U/L (46-116); ALT/SGPT 26 U/L (7.0-40); AST/SGOT 17 U/L (<34); BILIRUBIN,TOTAL 1.7 MG/DL (0.3-1.2); BLOOD UREA NITROGEN 12 MG/DL (9-23); CALCIUM LEVEL 9.2 MG/DL (8.5-10.1); CARBON DIOXIDE LEVEL 27 MMOL/L (20-31); CHLORIDE LEVEL 108 MMOL/L (98-107); CREATININE FOR GFR 0.68 MG/DL (0.55-1.30); FERRITIN 20.6 NG/ML (7.3-270.7); GLOMERULAR FILTRATION RATE > 60.0 (>60); GLUCOSE, FASTING 81 MG/DL (60-100); IRON (FE) 130 UG/DL (50-170); PERCENT SATURATION 38.5 % (13.2-45.0); POTASSIUM SERUM 4.2 MMOL/L (3.5-5.1); SODIUM LEVEL 142 MMOL/L (136-145); THYROID STIMULATING HORMONE 1.783 uIU/ML (0.55-4.78); TOTAL 25(OH) VITAMIN D 13.5 NG/ML (20.0-100.0); TOTAL IRON BINDING CAPACITY 338 UG/DL (250-425); TOTAL PROTEIN 7.1 G/DL (5.7-8.2)
== END ==
LOC: M LAB 09:32
PROVIDERS: ATTEND Nurse Practitioner Psychiatric/Mental Health
DX: F43.20 Adjustment disorder, unspecified (principal)

== ENCOUNTER → 2023-12-25 | Outpatient (CLI) | payer OTHER ==
[2023-12-25 14:26] LABS: BASO % 0.3 % (0.0-1.0); EOS # 0.1 10^3/uL (0.0-0.5); EOS % 1.2 % (0.0-3.0); HEMATOCRIT 39.7 % (36.0-47.0); HEMOGLOBIN 13.2 g/dl (12.0-15.5); LYMPH % 10.1 % (24.0-44.0); MEAN CORPUSCULAR HEMOGLOBIN 30.7 pg (27.0-33.0); MEAN CORPUSCULAR HGB CONC 33.2 g/dl (32.0-36.5); MEAN CORPUSCULAR VOLUME 92.3 fl (80.0-96.0); MONO # 0.6 10^3/uL (0.0-0.8); MONO % 6.8 % (2.0-8.0); NEUTROPHILS # 7.7 10^3/uL (1.5-8.5); NEUTROPHILS % 81.4 % (36.0-66.0); PLATELET COUNT, AUTOMATED 299 10^3/uL (150-450); WHITE BLOOD COUNT 9.5 10^3/uL (4.0-10.0)
[2023-12-25 14:55] LABS: LIPASE 35 U/L (12-53)
[2023-12-25 14:56] LABS: AMYLASE 36 U/L (30-118)
[2023-12-25 14:57] LABS: ALBUMIN 4.1 G/DL (3.2-5.2); ALKALINE PHOSPHATASE 63 U/L (46-116); ALT/SGPT 16 U/L (7.0-40); AST/SGOT 16 U/L (<34); BILIRUBIN,DIRECT 0.4 MG/DL (<0.4); BILIRUBIN,TOTAL 1.7 MG/DL (0.3-1.2); BLOOD UREA NITROGEN 14 MG/DL (9-23); CALCIUM LEVEL 9.2 MG/DL (8.5-10.1); CARBON DIOXIDE LEVEL 27 MMOL/L (20-31); CHLORIDE LEVEL 110 MMOL/L (98-107); CREATININE FOR GFR 0.72 MG/DL (0.55-1.30); GLOMERULAR FILTRATION RATE > 60.0 (>60); GLUCOSE, FASTING 83 MG/DL (60-100); POTASSIUM SERUM 4.8 MMOL/L (3.5-5.1); SODIUM LEVEL 140 MMOL/L (136-145)
== END ==
LOC: M LAB 14:00
PROVIDERS: ATTEND Physician Assistant
DX: R10.13 Epigastric pain (principal)

== ENCOUNTER → 2024-02-01 | Outpatient (REF) | payer OTHER ==
[2024-02-02 12:43] LABS: Trichomonas vaginalis (AMP) NOT DETECTED (NEGATIVE)
[2024-02-02 13:07] LABS: GC DNA AMPLIFICATION NEGATIVE (NEGATIVE)
== END ==
LOC: M LAB REF 10:11
PROVIDERS: ATTEND Physician Assistant
DX: N76.0 Acute vaginitis (principal)

== ENCOUNTER → 2024-06-08 | Outpatient (CLI) | payer OTHER | LOC: M LAB 14:08 | PROVIDERS: ATTEND Nurse Practitioner Psychiatric/Mental Health | DX: F43.20 Adjustment disorder, unspecified (principal); Z79.899 Other long term (current) drug therapy ==

== ENCOUNTER → 2024-06-13 | Outpatient (REF) | payer OTHER | LOC: M LAB REF 12:08 | PROVIDERS: ATTEND Physician Assistant | DX: J02.9 Acute pharyngitis, unspecified (principal) ==